=== PATIENT | female | born 1975 | race Caucasian/White ===

== ENCOUNTER 2018-08-23 16:40 | Inpatient (IN) | payer MEDICAID ==
[~2018-08-23] VITALS: Ht 160 cm; Wt 77.3 kg
[2018-08-23 17:45] VITALS: BP 168/72
--- NOTE | 2018-08-23 17:45 | NUR ---
Pt arrived via EMS from [facility]. Pt ambulated independently in to bed without difficulty. Pt oriented to room & call light placed within reach. Bed low/locked, tray table within reach.
--- NOTE | 2018-08-23 18:50 | NUR ---
Problems reprioritized. Patient report given, questions answered & plan of care reviewed with GERARDO Rahman.
--- NOTE | 2018-08-23 18:55 | NUR ---
Patient in room PCU 3014. I have received report from Hanna CARRILLO and had the opportunity to ask questions and assume patient care.
[2018-08-23] MEDS ORDERED: acetaminophen 325mg tablet PO PRN (19:25)
[2018-08-23] MEDS: normal saline 1000ml 1,000 ML IV SCH (19:45)
[2018-08-23] MEDS ORDERED: ondansetron/PF 4mg/2ml inj IV PRN (19:50)
[2018-08-23] MEDS ORDERED: ipratropium/albuterol 3ml nebule NEB PRN (19:50)
[2018-08-23 19:59] LABS: BASOPHILS # (AUTO) 0.1 X10'3 (0-0.2); BASOPHILS % (AUTO) 0.8 % (0-1); EOSINOPHILS # (AUTO) 0.1 X10'3 (0-0.9); EOSINOPHILS % (AUTO) 1.1 % (0-6); HEMATOCRIT 38.6 % (35.0-45.0); HEMOGLOBIN 13.3 g/dl (12.0-16.0); LYMPHOCYTES # (AUTO) 0.5 X10'3 (1.1-4.8); LYMPHOCYTES % (AUTO) 4.6 % (21-51); MEAN CORPUSCULAR HGB CONC 34.4 % (33.0-36.5); MEAN CORPUSCULAR VOLUME 98.8 FL (78-98); MEAN PLATELET VOLUME 7.5 FL (7.4-10.4); MONOCYTES # (AUTO) 0.9 X10'3 (0-0.9); MONOCYTES % (AUTO) 8.6 % (2-12); NEUTROPHILS # (AUTO) 8.6 X10'3 (1.8-7.7); NEUTROPHILS % (AUTO) 84.9 % (42-75); PLATELET COUNT 293 X10'3 (140-440); RED BLOOD COUNT 3.91 X10'6 (4.20-5.60); RED CELL DISTRIBUTION WIDTH 13.1 % (11.5-14.5); WHITE BLOOD COUNT 10.2 X10'3 (4.5-11.0)
[2018-08-23 20:00] VITALS: BP 148/81
--- NOTE | 2018-08-23 20:00 | NUR ---
Pt brought down to room 2014 via wheelchair. Pt unsteady gait, weak. Unsure of her normal mentation but she seems slow to respond and distracted. Pt hungry and thirsty, awaiting food tray. Frequent dry cough. Restless. Using call light.
[2018-08-23 20:10] LABS: ALANINE AMINOTRANSFERASE 59 U/L (12-78); ALBUMIN 3.1 G/DL (3.4-5.0); ALBUMIN/GLOBULIN RATIO 0.8 (1.1-1.5); ALKALINE PHOSPHATASE 127 IU/L (46-116); ANION GAP 8 (8-16); ASPARTATE AMINO TRANSFERASE 83 U/L (10-37); BILIRUBIN,TOTAL 0.8 MG/DL (0.1-1.0); BLOOD UREA NITROGEN 6 MG/DL (7-18); BUN/CREATININE RATIO 12.2 (6.6-38.0); CHLORIDE 69 MMOL/L (99-107); CREATININE 0.49 MG/DL (0.40-0.90); GLUCOSE 101 MG/DL (70-104); MAGNESIUM 1.6 MG/DL (1.5-2.4); PHOSPHORUS 1.8 MG/DL (2.3-4.5); POTASSIUM 3.2 MMOL/L (3.5-5.1); TOTAL PROTEIN 6.8 G/DL (6.4-8.2); eGFR > 90 ML/MIN
[2018-08-23 20:12] LABS: OSMOLALITY 207 MOSM/K (280-300)
[2018-08-23 20:14] LABS: PARTIAL THROMBOPLASTIN TIME 31 SECONDS (22-32); PROTHROMBIN TIME 10.4 SECONDS (9.0-12.0); SODIUM 101 MMOL/L (135-145)
[2018-08-23 21:00] VITALS: BP 132/79
[2018-08-23] MEDS: docusate sod 100mg capsule PO SCH (21:58)
[2018-08-23] MEDS: famotidine 20mg tablet PO SCH (21:58)
[2018-08-23] MEDS: labetalol 100mg tablet PO SCH (21:58)
[2018-08-23] MEDS: heparin, porcine 5000 units/ml vial SQ SCH (21:59)
[2018-08-23 22:00] VITALS: BP 128/52
[2018-08-23 23:00] VITALS: BP 133/92
[2018-08-24] VITALS (23 sets, daily range): BP systolic 93–143; BP diastolic 49–88
[2018-08-24 00:16] LABS: CLARITY,URINE CLEAR (Clear); COLOR,URINE YELLOW (Yellow); UA COLLECTION TYPE STRAIGHT CATH
[2018-08-24 00:17] LABS: GLUCOSE, URINE NEGATIVE (Neg); KETONES,URINE 15 mg/dl (Neg); LEUKOCYTE ESTERASE ,URINE NEGATIVE (Neg); NITRITES, URINE NEGATIVE (Neg); OCCULT BLOOD,URINE NEGATIVE (Neg); PH,URINE 6.5 (4.8-8.0); PROTEIN,URINE NEGATIVE (Neg)
[2018-08-24 00:53] LABS: SODIUM,URINE RANDOM < 15 MEQ/L
[2018-08-24 01:02] LABS: OSMOLALITY UA 343 MOSM/K (50-1400)
[2018-08-24 02:43] LABS: BASOPHILS % (AUTO) 0 % (0-1); EOSINOPHILS # (AUTO) 0.2 X10'3 (0-0.9); EOSINOPHILS % (AUTO) 1.4 % (0-6); HEMATOCRIT 34.1 % (35.0-45.0); LYMPHOCYTES # (AUTO) 0.4 X10'3 (1.1-4.8); LYMPHOCYTES % (AUTO) 3.3 % (21-51); MEAN CORPUSCULAR HEMOGLOBIN 34.5 PG (27.0-31.0); MEAN CORPUSCULAR HGB CONC 35.3 % (33.0-36.5); MEAN CORPUSCULAR VOLUME 97.7 FL (78-98); MEAN PLATELET VOLUME 7.6 FL (7.4-10.4); MONOCYTES % (AUTO) 8.8 % (2-12); NEUTROPHILS # (AUTO) 9.5 X10'3 (1.8-7.7); NEUTROPHILS % (AUTO) 86.5 % (42-75); PLATELET COUNT 290 X10'3 (140-440); RED BLOOD COUNT 3.49 X10'6 (4.20-5.60); RED CELL DISTRIBUTION WIDTH 12.8 % (11.5-14.5)
[2018-08-24 02:44] LABS: PARTIAL THROMBOPLASTIN TIME 32 SECONDS (22-32); PROTHROMBIN TIME 10.6 SECONDS (9.0-12.0)
[2018-08-24 02:46] LABS: ALANINE AMINOTRANSFERASE 56 U/L (12-78); ALBUMIN 2.7 G/DL (3.4-5.0); ALBUMIN/GLOBULIN RATIO 0.8 (1.1-1.5); ALKALINE PHOSPHATASE 110 IU/L (46-116); ANION GAP 8 (8-16); ASPARTATE AMINO TRANSFERASE 79 U/L (10-37); BILIRUBIN,TOTAL 0.6 MG/DL (0.1-1.0); BLOOD UREA NITROGEN 5 MG/DL (7-18); BUN/CREATININE RATIO 9.6 (6.6-38.0); CALCIUM 7.6 MG/DL (8.5-10.1); CHLORIDE 72 MMOL/L (99-107); CREATININE 0.52 MG/DL (0.40-0.90); GLUCOSE 103 MG/DL (70-104); MAGNESIUM 1.6 MG/DL (1.5-2.4); PHOSPHORUS 2.5 MG/DL (2.3-4.5); TOTAL CARBON DIOXIDE 23.6 MMOL/L (24-32); TOTAL PROTEIN 6.1 G/DL (6.4-8.2); eGFR > 90 ML/MIN
[2018-08-24 02:49] LABS: SODIUM 104 MMOL/L (135-145)
[2018-08-24] MEDS ORDERED: potassium Cl 20 mEq SR tablet PO PRN (03:50)
[2018-08-24] MEDS ORDERED: ALBU8.5H8 IH (05:34)
[2018-08-24] MEDS ORDERED: ESOM40CA30 PO (05:34)
[2018-08-24] MEDS ORDERED: LOSA50TA64 PO (05:34)
[2018-08-24] MEDS ORDERED: LABE100T5 PO (05:34)
--- NOTE | 2018-08-24 06:30 | NUR ---
Patient in room CICU 2013. I have received report from Summer Martin RN and had the opportunity to ask questions and assume patient care along with Breezy Allen RN
--- NOTE | 2018-08-24 06:43 | NUR ---
Problems reprioritized. Patient report given, questions answered & plan of care reviewed with Isaura CARRILLO.
[2018-08-24] MEDS ORDERED: furosemide 20 MG/2 ML vial IV ONE (07:05)
[2018-08-24] MEDS: normal saline 1000ml 1,000 ML IV SCH ×3 (07:51→20:35)
[2018-08-24] MEDS: thiamine 100mg tablet PO SCH (08:00)
[2018-08-24] MEDS: docusate sod 100mg capsule PO SCH ×2 (08:00→20:32)
[2018-08-24] MEDS: labetalol 100mg tablet PO SCH ×2 (08:01→20:32)
[2018-08-24] MEDS: nicotine 21mg patch - 24 hr TD SCH (08:01)
[2018-08-24] MEDS: folic acid 1mg tablet PO SCH (08:01)
[2018-08-24] MEDS: multivitamins, therapeutics tablet PO SCH (08:01)
[2018-08-24] MEDS: famotidine 20mg tablet PO SCH ×2 (08:01→20:32)
[2018-08-24] MEDS: heparin, porcine 5000 units/ml vial SQ SCH ×2 (08:02→20:33)
[2018-08-24] MEDS: methylPREDNISolone sod succ 125mg/2ml vial IV SCH ×3 (08:02→20:33)
[2018-08-24] MEDS: potassium Cl 20 mEq SR tablet PO PRN ×3 (08:04→18:03)
[2018-08-24 08:07] LABS: ALBUMIN 2.9 G/DL (3.4-5.0); ANION GAP 7 (8-16); BLOOD UREA NITROGEN 5 MG/DL (7-18); BUN/CREATININE RATIO 10.2 (6.6-38.0); CALCIUM 7.8 MG/DL (8.5-10.1); CHLORIDE 73 MMOL/L (99-107); CREATININE 0.49 MG/DL (0.40-0.90); GLUCOSE 106 MG/DL (70-104); POTASSIUM 3.4 MMOL/L (3.5-5.1); TOTAL CARBON DIOXIDE 24.9 MMOL/L (24-32); eGFR > 90 ML/MIN
[2018-08-24 08:18] LABS: SODIUM 105 MMOL/L (135-145)
--- NOTE | 2018-08-24 09:11 | NUR ---
Patient belongings searched at bedside per request of security, with patients permission. No drugs or weapons found
[2018-08-24] MEDS ORDERED: TOLVAPTAN 30 MG TABLET PO ONE (12:00)
[2018-08-24 13:30] LABS: ANION GAP 7 (8-16); BLOOD UREA NITROGEN 5 MG/DL (7-18); BUN/CREATININE RATIO 9.6 (6.6-38.0); CALCIUM 8.4 MG/DL (8.5-10.1); CHLORIDE 78 MMOL/L (99-107); CREATININE 0.52 MG/DL (0.40-0.90); GLUCOSE 129 MG/DL (70-104); POTASSIUM 3.3 MMOL/L (3.5-5.1); TOTAL CARBON DIOXIDE 26.4 MMOL/L (24-32); eGFR > 90 ML/MIN
[2018-08-24 13:36] LABS: SODIUM 111 MMOL/L (135-145)
--- NOTE | 2018-08-24 13:46 | NUR ---
Sodium 111; up from 105. notified. Orders to hold Tolvaptan for now. No other new orders
[2018-08-24] MEDS: acetaminophen 325mg tablet PO PRN (14:07)
[2018-08-24] MEDS ORDERED: ALBU18HF2 INH (17:21)
[2018-08-24] MEDS ORDERED: PSEU120T55 PO (17:21)
[2018-08-24] MEDS ORDERED: BECL7.3A INH (17:21)
--- NOTE | 2018-08-24 18:02 | NUR ---
Orientee documentation: I have reviewed and agree with all interventions, assessments performed and documented by Breezy Allen RN.
--- NOTE | 2018-08-24 18:34 | NUR ---
Problems reprioritized. Patient report given, questions answered & plan of care reviewed with Veronique Allen RN.
[2018-08-24 19:47] LABS: ALBUMIN 2.8 G/DL (3.4-5.0); ANION GAP 7 (8-16); BLOOD UREA NITROGEN 6 MG/DL (7-18); BUN/CREATININE RATIO 8.7 (6.6-38.0); CALCIUM 8.1 MG/DL (8.5-10.1); CHLORIDE 84 MMOL/L (99-107); CREATININE 0.69 MG/DL (0.40-0.90); GLUCOSE 148 MG/DL (70-104); POTASSIUM 4.1 MMOL/L (3.5-5.1); TOTAL CARBON DIOXIDE 25.5 MMOL/L (24-32); eGFR > 90 ML/MIN
[2018-08-24 19:50] LABS: SODIUM 116 MMOL/L (135-145)
[2018-08-25] VITALS (16 sets, daily range): BP systolic 119–165; BP diastolic 64–91
[2018-08-25] MEDS: methylPREDNISolone sod succ 125mg/2ml vial IV SCH ×4 (02:44→20:15)
[2018-08-25 06:11] LABS: BASOPHILS % (AUTO) 0 % (0-1); EOSINOPHILS % (AUTO) 0 % (0-6); HEMATOCRIT 35.5 % (35.0-45.0); HEMOGLOBIN 12.2 g/dl (12.0-16.0); LYMPHOCYTES # (AUTO) 0.2 X10'3 (1.1-4.8); LYMPHOCYTES % (AUTO) 1.4 % (21-51); MEAN CORPUSCULAR HEMOGLOBIN 34.2 PG (27.0-31.0); MEAN CORPUSCULAR HGB CONC 34.3 % (33.0-36.5); MEAN CORPUSCULAR VOLUME 99.8 FL (78-98); MEAN PLATELET VOLUME 7.8 FL (7.4-10.4); MONOCYTES # (AUTO) 0.4 X10'3 (0-0.9); MONOCYTES % (AUTO) 2.3 % (2-12); NEUTROPHILS # (AUTO) 15.1 X10'3 (1.8-7.7); NEUTROPHILS % (AUTO) 96.3 % (42-75); PLATELET COUNT 350 X10'3 (140-440); RED BLOOD COUNT 3.56 X10'6 (4.20-5.60); RED CELL DISTRIBUTION WIDTH 13.7 % (11.5-14.5); WHITE BLOOD COUNT 15.7 X10'3 (4.5-11.0)
[2018-08-25 06:17] LABS: ALANINE AMINOTRANSFERASE 54 U/L (12-78); ALBUMIN 2.8 G/DL (3.4-5.0); ALBUMIN/GLOBULIN RATIO 0.7 (1.1-1.5); ALKALINE PHOSPHATASE 105 IU/L (46-116); ANION GAP 8 (8-16); ASPARTATE AMINO TRANSFERASE 50 U/L (10-37); BILIRUBIN,TOTAL 0.4 MG/DL (0.1-1.0); BLOOD UREA NITROGEN 5 MG/DL (7-18); BUN/CREATININE RATIO 9.3 (6.6-38.0); CALCIUM 8.4 MG/DL (8.5-10.1); CHLORIDE 87 MMOL/L (99-107); CREATININE 0.54 MG/DL (0.40-0.90); GLUCOSE 134 MG/DL (70-104); MAGNESIUM 1.9 MG/DL (1.5-2.4); PHOSPHORUS 2.7 MG/DL (2.3-4.5); POTASSIUM 4.3 MMOL/L (3.5-5.1); TOTAL CARBON DIOXIDE 24.5 MMOL/L (24-32); TOTAL PROTEIN 6.6 G/DL (6.4-8.2); eGFR > 90 ML/MIN
[2018-08-25 06:21] LABS: SODIUM 119 MMOL/L (135-145)
--- NOTE | 2018-08-25 06:30 | NUR ---
Patient in room CICU 2012. Assumed patient care along with Breezy Allen RN.
[2018-08-25 06:31] LABS: PARTIAL THROMBOPLASTIN TIME 28 SECONDS (22-32); PROTHROMBIN TIME 9.8 SECONDS (9.0-12.0)
[2018-08-25] MEDS: normal saline 1000ml 1,000 ML IV SCH ×3 (06:38→17:21)
[2018-08-25] MEDS: ipratropium/albuterol 3ml nebule NEB SCH ×3 (08:00→19:47)
[2018-08-25] MEDS: famotidine 20mg tablet PO SCH (08:55)
[2018-08-25] MEDS: docusate sod 100mg capsule PO SCH ×2 (08:55→20:15)
[2018-08-25] MEDS: labetalol 100mg tablet PO SCH ×2 (08:55→20:15)
[2018-08-25] MEDS: thiamine 100mg tablet PO SCH (08:55)
[2018-08-25] MEDS: folic acid 1mg tablet PO SCH (08:55)
[2018-08-25] MEDS: multivitamins, therapeutics tablet PO SCH (08:55)
[2018-08-25] MEDS: heparin, porcine 5000 units/ml vial SQ SCH ×2 (08:58→20:24)
[2018-08-25] MEDS: nicotine 21mg patch - 24 hr TD SCH (08:59)
[2018-08-25 12:37] LABS: ALANINE AMINOTRANSFERASE 55 U/L (12-78); ALBUMIN 2.7 G/DL (3.4-5.0); ALBUMIN/GLOBULIN RATIO 0.7 (1.1-1.5); ALKALINE PHOSPHATASE 108 IU/L (46-116); ANION GAP 7 (8-16); ASPARTATE AMINO TRANSFERASE 48 U/L (10-37); BILIRUBIN,TOTAL 0.3 MG/DL (0.1-1.0); BLOOD UREA NITROGEN 5 MG/DL (7-18); CALCIUM 8.4 MG/DL (8.5-10.1); CHLORIDE 88 MMOL/L (99-107); GLUCOSE 134 MG/DL (70-104); POTASSIUM 4.4 MMOL/L (3.5-5.1); TOTAL CARBON DIOXIDE 24.1 MMOL/L (24-32); TOTAL PROTEIN 6.5 G/DL (6.4-8.2); eGFR > 90 ML/MIN
[2018-08-25 12:39] LABS: SODIUM 119 MMOL/L (135-145)
--- NOTE | 2018-08-25 12:43 | NUR ---
Received report from ICU nurse Isaura CARRILLO. Awaiting arrival to room 4011A.
--- NOTE | 2018-08-25 12:50 | NUR ---
Report called to receiving nurse, Isaura Mcarthur RN. Transferred via wheelchair Belongings [sent with patient, states she is missing reading glasses in black case, brought in last night]. Special Issues communicated to receiving nurse, see unit to unit transfer intervention. Home meds sent in bag with reported slip inside, education provided to patient regarding the use of home meds and how it is prohibited to use them while in the hospital. NS running at 75ml/hr. Nebulizer in [facility],s ent with patient. Oziel RT notified patient requesting breathing treatment. Patient denies pain. Addendum: 08/25/18 at 1331 by Isaura Lawson RN ROOM [facility]
[2018-08-25] MEDS: losartan 50mg tablet PO SCH (12:58)
--- NOTE | 2018-08-25 13:23 | NUR ---
Patient arrived to room 4011A. Patient oriented to call light, bed controls.
[2018-08-25] MEDS ORDERED: ESOMEPRAZOLE MAGNESIUM 40 MG PO SCH (13:45)
[2018-08-25] MEDS ORDERED: ESOMEPRAZOLE MAGNESIUM 20 MG PO SCH (13:46)
[2018-08-25] MEDS ORDERED: TYPE IN GENERIC & BRAND NAME OF PATIENT MED STRENGTH & FORM PO ONE (13:55)
[2018-08-25] MEDS ORDERED: NEXIUM 20 MG PO SCH ×2 (14:03→14:25)
--- NOTE | 2018-08-25 14:12 | NUR ---
Dr. Scott notified of critical Na of 119. No new orders at this time.
--- NOTE | 2018-08-25 14:17 | NUR ---
Pt refusing blood sugar check at this time.
[2018-08-25] MEDS ORDERED: ESOM20CA PO (16:59)
[2018-08-25] MEDS: NEXIUM 20 MG PO SCH (17:17)
--- NOTE | 2018-08-25 18:13 | NUR ---
Problems reprioritized. Patient report given, questions answered & plan of care reviewed with Linda CARRILLO.
--- NOTE | 2018-08-25 18:29 | NUR ---
PATIENT REPORT RECEIVED FROM ALVARADO CARRILLO.
[2018-08-25 18:45] LABS: ALANINE AMINOTRANSFERASE 67 U/L (12-78); ALBUMIN/GLOBULIN RATIO 0.8 (1.1-1.5); ALKALINE PHOSPHATASE 111 IU/L (46-116); ANION GAP 8 (8-16); ASPARTATE AMINO TRANSFERASE 60 U/L (10-37); BILIRUBIN,TOTAL 0.3 MG/DL (0.1-1.0); BLOOD UREA NITROGEN 7 MG/DL (7-18); BUN/CREATININE RATIO 9.1 (6.6-38.0); CALCIUM 8.5 MG/DL (8.5-10.1); CHLORIDE 88 MMOL/L (99-107); CREATININE 0.77 MG/DL (0.40-0.90); GLUCOSE 145 MG/DL (70-104); POTASSIUM 4.3 MMOL/L (3.5-5.1); TOTAL CARBON DIOXIDE 24.1 MMOL/L (24-32); TOTAL PROTEIN 6.9 G/DL (6.4-8.2); eGFR 81 ML/MIN
[2018-08-25 18:50] LABS: SODIUM 120 MMOL/L (135-145)
[2018-08-26] MEDS: LORazepam 1 MG tablet PO PRN ×2 (01:15→21:21)
[2018-08-26] MEDS: ipratropium/albuterol 3ml nebule NEB SCH ×4 (01:54→19:53)
[2018-08-26] MEDS: methylPREDNISolone sod succ 125mg/2ml vial IV SCH ×4 (02:20→22:41)
[2018-08-26 02:49] LABS: BASOPHILS % (AUTO) 0 % (0-1); EOSINOPHILS # (AUTO) 0.2 X10'3 (0-0.9); EOSINOPHILS % (AUTO) 1.1 % (0-6); HEMATOCRIT 32.9 % (35.0-45.0); HEMOGLOBIN 11.5 g/dl (12.0-16.0); LYMPHOCYTES # (AUTO) 0.3 X10'3 (1.1-4.8); LYMPHOCYTES % (AUTO) 1.8 % (21-51); MEAN CORPUSCULAR HEMOGLOBIN 34.3 PG (27.0-31.0); MEAN CORPUSCULAR HGB CONC 34.9 % (33.0-36.5); MEAN CORPUSCULAR VOLUME 98.3 FL (78-98); MEAN PLATELET VOLUME 7.9 FL (7.4-10.4); MONOCYTES # (AUTO) 0.8 X10'3 (0-0.9); MONOCYTES % (AUTO) 5.2 % (2-12); NEUTROPHILS # (AUTO) 14.7 X10'3 (1.8-7.7); NEUTROPHILS % (AUTO) 91.9 % (42-75); PLATELET COUNT 366 X10'3 (140-440); RED BLOOD COUNT 3.35 X10'6 (4.20-5.60); RED CELL DISTRIBUTION WIDTH 13.8 % (11.5-14.5)
[2018-08-26 02:54] LABS: ALANINE AMINOTRANSFERASE 83 U/L (12-78); ALBUMIN/GLOBULIN RATIO 0.8 (1.1-1.5); ALKALINE PHOSPHATASE 113 IU/L (46-116); ANION GAP 11 (8-16); ASPARTATE AMINO TRANSFERASE 78 U/L (10-37); BILIRUBIN,TOTAL 0.4 MG/DL (0.1-1.0); BLOOD UREA NITROGEN 9 MG/DL (7-18); BUN/CREATININE RATIO 13.8 (6.6-38.0); CALCIUM 8.6 MG/DL (8.5-10.1); CHLORIDE 87 MMOL/L (99-107); CREATININE 0.65 MG/DL (0.40-0.90); GLUCOSE 147 MG/DL (70-104); MAGNESIUM 1.8 MG/DL (1.5-2.4); PHOSPHORUS 2.4 MG/DL (2.3-4.5); POTASSIUM 4.3 MMOL/L (3.5-5.1); TOTAL CARBON DIOXIDE 20.4 MMOL/L (24-32); TOTAL PROTEIN 6.9 G/DL (6.4-8.2); eGFR > 90 ML/MIN
[2018-08-26 02:55] LABS: PARTIAL THROMBOPLASTIN TIME 26 SECONDS (22-32); PROTHROMBIN TIME 9.9 SECONDS (9.0-12.0)
[2018-08-26 02:59] LABS: SODIUM 118 MMOL/L (135-145)
--- NOTE | 2018-08-26 04:29 | NUR ---
PT PULLED OUT IV. NEW ONE PUT IN.
[2018-08-26] MEDS: hydrALAZINE 20mg/ml inj. IV PRN ×2 (05:47→23:17)
[2018-08-26 06:00] VITALS: BP 189/106
--- NOTE | 2018-08-26 06:47 | NUR ---
PATIENT REPORT GIVEN TO KRISTEN CARRILLO.
--- NOTE | 2018-08-26 07:16 | NUR ---
Patient in room ORTHO 4009. I have received report from Kelley Shelton RN and had the opportunity to ask questions and assume patient care.
[2018-08-26 07:44] LABS: ALANINE AMINOTRANSFERASE 83 U/L (12-78); ALBUMIN 3.1 G/DL (3.4-5.0); ALBUMIN/GLOBULIN RATIO 0.8 (1.1-1.5); ALKALINE PHOSPHATASE 116 IU/L (46-116); ANION GAP 11 (8-16); ASPARTATE AMINO TRANSFERASE 73 U/L (10-37); BILIRUBIN,TOTAL 0.4 MG/DL (0.1-1.0); BLOOD UREA NITROGEN 8 MG/DL (7-18); BUN/CREATININE RATIO 12.5 (6.6-38.0); CALCIUM 9.1 MG/DL (8.5-10.1); CHLORIDE 88 MMOL/L (99-107); CREATININE 0.64 MG/DL (0.40-0.90); GLUCOSE 148 MG/DL (70-104); POTASSIUM 4.1 MMOL/L (3.5-5.1); TOTAL CARBON DIOXIDE 21.4 MMOL/L (24-32); eGFR > 90 ML/MIN
[2018-08-26 07:47] LABS: SODIUM 120 MMOL/L (135-145)
[2018-08-26] MEDS: normal saline 1000ml 1,000 ML IV SCH ×2 (07:47→22:54)
[2018-08-26] MEDS: folic acid 1mg tablet PO SCH (07:48)
[2018-08-26] MEDS: docusate sod 100mg capsule PO SCH ×2 (07:48→21:21)
[2018-08-26] MEDS: thiamine 100mg tablet PO SCH (07:49)
[2018-08-26] MEDS: losartan 50mg tablet PO SCH (07:50)
[2018-08-26] MEDS: multivitamins, therapeutics tablet PO SCH (07:50)
[2018-08-26] MEDS: labetalol 100mg tablet PO SCH ×2 (07:50→21:21)
[2018-08-26] MEDS: heparin, porcine 5000 units/ml vial SQ SCH ×2 (07:54→21:21)
[2018-08-26] MEDS: nicotine 21mg patch - 24 hr TD SCH (07:56)
--- NOTE | 2018-08-26 08:13 | NUR ---
Karin Pastor called about Critical NA of 120, no change in orders, will continue to monitor
[2018-08-26 10:00] VITALS: BP 168/95
[2018-08-26] MEDS: NEXIUM 20 MG PO SCH (10:06)
[2018-08-26] MEDS ORDERED: furosemide 20 MG/2 ML vial IV ONE (12:25)
[2018-08-26] MEDS: sodium chloride 1gm tablet PO SCH ×3 (12:54→21:21)
[2018-08-26 12:59] VITALS: BP 176/88
[2018-08-26 15:48] VITALS: BP 161/87
[2018-08-26 17:23] LABS: ALANINE AMINOTRANSFERASE 87 U/L (12-78); ALBUMIN/GLOBULIN RATIO 0.8 (1.1-1.5); ALKALINE PHOSPHATASE 113 IU/L (46-116); ANION GAP 9 (8-16); ASPARTATE AMINO TRANSFERASE 64 U/L (10-37); BILIRUBIN,TOTAL 0.3 MG/DL (0.1-1.0); BLOOD UREA NITROGEN 9 MG/DL (7-18); BUN/CREATININE RATIO 13.2 (6.6-38.0); CALCIUM 8.6 MG/DL (8.5-10.1); CHLORIDE 89 MMOL/L (99-107); CREATININE 0.68 MG/DL (0.40-0.90); GLUCOSE 150 MG/DL (70-104); SODIUM 121 MMOL/L (135-145); TOTAL CARBON DIOXIDE 23.1 MMOL/L (24-32); TOTAL PROTEIN 6.8 G/DL (6.4-8.2); eGFR > 90 ML/MIN
[2018-08-26 18:00] VITALS: BP 177/86
--- NOTE | 2018-08-26 18:20 | NUR ---
Problems reprioritized. Patient report given, questions answered & plan of care reviewed with Linda CARRILLO.
--- NOTE | 2018-08-26 18:33 | NUR ---
PATIENT REPORT RECEIVED FROM KRISTEN CARRILLO.
[2018-08-26 21:21] LABS: ALANINE AMINOTRANSFERASE 98 U/L (12-78); ALBUMIN 3.1 G/DL (3.4-5.0); ALBUMIN/GLOBULIN RATIO 0.8 (1.1-1.5); ALKALINE PHOSPHATASE 122 IU/L (46-116); ANION GAP 11 (8-16); ASPARTATE AMINO TRANSFERASE 79 U/L (10-37); BILIRUBIN,TOTAL 0.3 MG/DL (0.1-1.0); BLOOD UREA NITROGEN 8 MG/DL (7-18); BUN/CREATININE RATIO 11.4 (6.6-38.0); CALCIUM 8.8 MG/DL (8.5-10.1); CHLORIDE 90 MMOL/L (99-107); GLUCOSE 154 MG/DL (70-104); SODIUM 122 MMOL/L (135-145); TOTAL PROTEIN 6.9 G/DL (6.4-8.2); eGFR 90 ML/MIN
--- NOTE | 2018-08-26 21:47 | NUR ---
Late note from this am at 0500, I moved patient from room 4011a to room 4009a since she was getting up on her own and is unsteady with her gait. She also has pulled out three iv's over the night too. We rounded on patient often for safety and reminded her to use the call light for assistance to get oob but she was not compliant. She was sitting in the chair, taking off the TABS alarm and would not stay in the bed with the bed alarm on. She would go to the bathroom on her own so it was impossible to do accurate i/o the evening of 08/25/18. Hats were placed in the toilet but not being used by her.
[2018-08-26 22:00] VITALS: BP 192/97
[2018-08-27] MEDS: ipratropium/albuterol 3ml nebule NEB SCH ×3 (01:58→20:16)
[2018-08-27] MEDS: methylPREDNISolone sod succ 125mg/2ml vial IV SCH ×3 (03:00→19:47)
[2018-08-27 05:00] VITALS: BP 177/91
--- NOTE | 2018-08-27 06:37 | NUR ---
PATIENT REPORT GIVEN TO TREVON CARRILLO.
[2018-08-27 06:39] LABS: BASOPHILS % (AUTO) 0 % (0-1); EOSINOPHILS % (AUTO) 0 % (0-6); HEMATOCRIT 34.5 % (35.0-45.0); HEMOGLOBIN 11.9 g/dl (12.0-16.0); LYMPHOCYTES # (AUTO) 0.4 X10'3 (1.1-4.8); LYMPHOCYTES % (AUTO) 3.5 % (21-51); MEAN CORPUSCULAR HEMOGLOBIN 34.1 PG (27.0-31.0); MEAN CORPUSCULAR HGB CONC 34.5 % (33.0-36.5); MEAN CORPUSCULAR VOLUME 98.9 FL (78-98); MEAN PLATELET VOLUME 7.4 FL (7.4-10.4); MONOCYTES # (AUTO) 0.7 X10'3 (0-0.9); MONOCYTES % (AUTO) 5.7 % (2-12); NEUTROPHILS # (AUTO) 10.6 X10'3 (1.8-7.7); NEUTROPHILS % (AUTO) 90.8 % (42-75); PLATELET COUNT 398 X10'3 (140-440); RED BLOOD COUNT 3.49 X10'6 (4.20-5.60); RED CELL DISTRIBUTION WIDTH 13.6 % (11.5-14.5); WHITE BLOOD COUNT 11.7 X10'3 (4.5-11.0)
[2018-08-27 06:49] LABS: PARTIAL THROMBOPLASTIN TIME 25 SECONDS (22-32); PROTHROMBIN TIME 10.3 SECONDS (9.0-12.0)
[2018-08-27 06:54] LABS: ALANINE AMINOTRANSFERASE 98 U/L (12-78); ALBUMIN 2.9 G/DL (3.4-5.0); ALBUMIN/GLOBULIN RATIO 0.8 (1.1-1.5); ALKALINE PHOSPHATASE 116 IU/L (46-116); ANION GAP 11 (8-16); ASPARTATE AMINO TRANSFERASE 70 U/L (10-37); BILIRUBIN,TOTAL 0.4 MG/DL (0.1-1.0); BLOOD UREA NITROGEN 9 MG/DL (7-18); BUN/CREATININE RATIO 18.8 (6.6-38.0); CALCIUM 8.6 MG/DL (8.5-10.1); CHLORIDE 92 MMOL/L (99-107); CREATININE 0.48 MG/DL (0.40-0.90); GLUCOSE 133 MG/DL (70-104); MAGNESIUM 1.8 MG/DL (1.5-2.4); PHOSPHORUS 3.7 MG/DL (2.3-4.5); SODIUM 124 MMOL/L (135-145); TOTAL CARBON DIOXIDE 21.2 MMOL/L (24-32); TOTAL PROTEIN 6.6 G/DL (6.4-8.2); eGFR > 90 ML/MIN
[2018-08-27] MEDS: furosemide 20 MG/2 ML vial IV SCH (09:12)
[2018-08-27 10:00] VITALS: BP 169/94
[2018-08-27] MEDS: nicotine 21mg patch - 24 hr TD SCH (10:17)
[2018-08-27] MEDS: docusate sod 100mg capsule PO SCH ×2 (10:18→19:43)
[2018-08-27] MEDS: multivitamins, therapeutics tablet PO SCH (10:18)
[2018-08-27] MEDS: losartan 50mg tablet PO SCH (10:18)
[2018-08-27] MEDS: labetalol 100mg tablet PO SCH ×2 (10:19→19:43)
[2018-08-27] MEDS: thiamine 100mg tablet PO SCH (10:19)
[2018-08-27] MEDS: sodium chloride 1gm tablet PO SCH ×4 (10:19→19:43)
[2018-08-27] MEDS: folic acid 1mg tablet PO SCH (10:19)
[2018-08-27] MEDS: NEXIUM 20 MG PO SCH (10:19)
[2018-08-27] MEDS: heparin, porcine 5000 units/ml vial SQ SCH ×2 (10:26→19:43)
--- NOTE | 2018-08-27 11:32 | NUR ---
Initial: Pt admit w/ SIADH r/t etoh potomania per note. Receiving thiamin/folic/MVI w/ Na 124 up from 101 on admit. PO 50% avg meals good given current wt. LBM 08/24 on colace. Will continue to monitor. Rec; 1. continue regular diet 2. thiamin/folic/MVI for etoh 3. wt per rx Addendum: 08/27/18 at [address] Amended: Links added.
[2018-08-27] MEDS ORDERED: labetalol 100mg tablet PO ONE (13:20)
[2018-08-27] MEDS: pseudoephedrine 30mg tablet PO PRN (14:45)
[2018-08-27] MEDS: acetaminophen 325mg tablet PO PRN (17:50)
--- NOTE | 2018-08-27 18:16 | NUR ---
Report to Shilpa CARRILLO
[2018-08-27 18:39] VITALS: BP 183/103
--- NOTE | 2018-08-27 18:52 | NUR ---
REPORT REC'D FROM GERARDO LESTER.
[2018-08-27 22:00] VITALS: BP 196/98
[2018-08-27] MEDS: hydrALAZINE 20mg/ml inj. IV PRN (22:42)
--- NOTE | 2018-08-27 22:46 | NUR ---
HYDRALAZINE GIVEN FOR INCREASED BP. 196/98. SL AT THIS TIME R/T INCREASED BP. WILL CONTINUE TO MONITOR.
[2018-08-28] MEDS: ipratropium/albuterol 3ml nebule NEB SCH ×4 (01:57→19:54)
[2018-08-28 06:00] VITALS: BP 147/80
--- NOTE | 2018-08-28 06:00 | NUR ---
Patient in room ORTHO 4009. I have received report from GERARDO Massey and had the opportunity to ask questions and assume patient care.
--- NOTE | 2018-08-28 06:23 | NUR ---
REPORT GIVEN TO GERARDO MORENO.
[2018-08-28 06:33] LABS: BASOPHILS # (AUTO) 0.1 X10'3 (0-0.2); BASOPHILS % (AUTO) 0.5 % (0-1); EOSINOPHILS # (AUTO) 0.1 X10'3 (0-0.9); EOSINOPHILS % (AUTO) 1.1 % (0-6); HEMATOCRIT 34.4 % (35.0-45.0); HEMOGLOBIN 11.7 g/dl (12.0-16.0); LYMPHOCYTES # (AUTO) 0.9 X10'3 (1.1-4.8); LYMPHOCYTES % (AUTO) 7.3 % (21-51); MEAN CORPUSCULAR HEMOGLOBIN 33.7 PG (27.0-31.0); MEAN CORPUSCULAR HGB CONC 34.1 % (33.0-36.5); MEAN CORPUSCULAR VOLUME 98.8 FL (78-98); MONOCYTES # (AUTO) 1.7 X10'3 (0-0.9); MONOCYTES % (AUTO) 13.7 % (2-12); NEUTROPHILS # (AUTO) 9.7 X10'3 (1.8-7.7); NEUTROPHILS % (AUTO) 77.4 % (42-75); PLATELET COUNT 443 X10'3 (140-440); RED BLOOD COUNT 3.48 X10'6 (4.20-5.60); RED CELL DISTRIBUTION WIDTH 13.6 % (11.5-14.5); WHITE BLOOD COUNT 12.5 X10'3 (4.5-11.0)
[2018-08-28 06:50] LABS: ALANINE AMINOTRANSFERASE 121 U/L (12-78); ALBUMIN 2.8 G/DL (3.4-5.0); ALBUMIN/GLOBULIN RATIO 0.8 (1.1-1.5); ALKALINE PHOSPHATASE 109 IU/L (46-116); ANION GAP 10 (8-16); ASPARTATE AMINO TRANSFERASE 80 U/L (10-37); BILIRUBIN,TOTAL 0.3 MG/DL (0.1-1.0); BLOOD UREA NITROGEN 14 MG/DL (7-18); BUN/CREATININE RATIO 19.7 (6.6-38.0); CALCIUM 8.5 MG/DL (8.5-10.1); CHLORIDE 95 MMOL/L (99-107); CREATININE 0.71 MG/DL (0.40-0.90); GLUCOSE 114 MG/DL (70-104); MAGNESIUM 1.7 MG/DL (1.5-2.4); PHOSPHORUS 3.9 MG/DL (2.3-4.5); POTASSIUM 3.3 MMOL/L (3.5-5.1); SODIUM 127 MMOL/L (135-145); TOTAL CARBON DIOXIDE 21.9 MMOL/L (24-32); TOTAL PROTEIN 6.2 G/DL (6.4-8.2); eGFR 89 ML/MIN
[2018-08-28 07:08] LABS: PARTIAL THROMBOPLASTIN TIME 25 SECONDS (22-32); PROTHROMBIN TIME 10.3 SECONDS (9.0-12.0)
[2018-08-28] MEDS: furosemide 20 MG/2 ML vial IV SCH (08:35)
[2018-08-28] MEDS: docusate sod 100mg capsule PO SCH ×2 (08:35→20:36)
[2018-08-28] MEDS: methylPREDNISolone sod succ 125mg/2ml vial IV SCH ×2 (08:35→20:35)
[2018-08-28] MEDS: folic acid 1mg tablet PO SCH (08:38)
[2018-08-28] MEDS: losartan 50mg tablet PO SCH (08:38)
[2018-08-28] MEDS: thiamine 100mg tablet PO SCH (08:39)
[2018-08-28] MEDS: multivitamins, therapeutics tablet PO SCH (08:39)
[2018-08-28] MEDS: sodium chloride 1gm tablet PO SCH ×4 (08:39→20:36)
[2018-08-28] MEDS: NEXIUM 20 MG PO SCH (08:39)
[2018-08-28] MEDS: labetalol 100mg tablet PO SCH ×3 (08:40→20:36)
[2018-08-28] MEDS: heparin, porcine 5000 units/ml vial SQ SCH ×2 (08:40→20:44)
[2018-08-28] MEDS: nicotine 21mg patch - 24 hr TD SCH (08:41)
[2018-08-28] MEDS: pseudoephedrine 30mg tablet PO PRN (08:41)
[2018-08-28 10:00] VITALS: BP 147/83
[2018-08-28] MEDS: normal saline 1000ml 1,000 ML IV SCH (13:00)
[2018-08-28 18:00] VITALS: BP 173/89
--- NOTE | 2018-08-28 18:28 | NUR ---
REPORT REC'D FROM GERARDO MORENO.
--- NOTE | 2018-08-28 20:01 | NUR ---
PT TOOK 2000 SVN TREATMENT FOR ABOUT 3 MIN AND REFUSED THE REST
[2018-08-28 22:00] VITALS: BP 164/91
[2018-08-29] MEDS: ipratropium/albuterol 3ml nebule NEB SCH ×3 (02:00→14:00)
--- NOTE | 2018-08-29 02:46 | NUR ---
pt refused 0200 svn treatment
[2018-08-29 06:00] VITALS: BP 176/94
--- NOTE | 2018-08-29 06:10 | NUR ---
Patient in room ORTHO 4009. I have received report from GERARDO Massey and had the opportunity to ask questions and assume patient care.
--- NOTE | 2018-08-29 06:12 | NUR ---
REPORT GIVEN TO GERARDO MORENO.
[2018-08-29 06:38] LABS: BASOPHILS # (AUTO) 0.1 X10'3 (0-0.2); BASOPHILS % (AUTO) 0.4 % (0-1); EOSINOPHILS # (AUTO) 0.2 X10'3 (0-0.9); EOSINOPHILS % (AUTO) 1.6 % (0-6); HEMATOCRIT 35.8 % (35.0-45.0); HEMOGLOBIN 12.2 g/dl (12.0-16.0); LYMPHOCYTES # (AUTO) 0.8 X10'3 (1.1-4.8); LYMPHOCYTES % (AUTO) 6.1 % (21-51); MEAN CORPUSCULAR HEMOGLOBIN 33.9 PG (27.0-31.0); MEAN CORPUSCULAR VOLUME 99.6 FL (78-98); MEAN PLATELET VOLUME 7.3 FL (7.4-10.4); MONOCYTES # (AUTO) 1.2 X10'3 (0-0.9); MONOCYTES % (AUTO) 9.8 % (2-12); NEUTROPHILS # (AUTO) 10.3 X10'3 (1.8-7.7); NEUTROPHILS % (AUTO) 82.1 % (42-75); PLATELET COUNT 488 X10'3 (140-440); RED CELL DISTRIBUTION WIDTH 14.3 % (11.5-14.5); WHITE BLOOD COUNT 12.5 X10'3 (4.5-11.0)
[2018-08-29 06:44] LABS: PARTIAL THROMBOPLASTIN TIME 25 SECONDS (22-32)
[2018-08-29 06:51] LABS: ALANINE AMINOTRANSFERASE 109 U/L (12-78); ALBUMIN 2.9 G/DL (3.4-5.0); ALBUMIN/GLOBULIN RATIO 0.8 (1.1-1.5); ALKALINE PHOSPHATASE 104 IU/L (46-116); ANION GAP 12 (8-16); ASPARTATE AMINO TRANSFERASE 48 U/L (10-37); BILIRUBIN,TOTAL 0.3 MG/DL (0.1-1.0); BLOOD UREA NITROGEN 15 MG/DL (7-18); BUN/CREATININE RATIO 25.9 (6.6-38.0); CALCIUM 8.6 MG/DL (8.5-10.1); CHLORIDE 95 MMOL/L (99-107); CREATININE 0.58 MG/DL (0.40-0.90); GLUCOSE 107 MG/DL (70-104); MAGNESIUM 1.5 MG/DL (1.5-2.4); PHOSPHORUS 4.7 MG/DL (2.3-4.5); POTASSIUM 3.7 MMOL/L (3.5-5.1); SODIUM 130 MMOL/L (135-145); TOTAL CARBON DIOXIDE 23.3 MMOL/L (24-32); TOTAL PROTEIN 6.5 G/DL (6.4-8.2); eGFR > 90 ML/MIN
[2018-08-29 08:30] VITALS: BP 150/96
[2018-08-29] MEDS: methylPREDNISolone sod succ 125mg/2ml vial IV SCH (08:41)
[2018-08-29] MEDS: furosemide 20 MG/2 ML vial IV SCH (08:41)
[2018-08-29] MEDS: docusate sod 100mg capsule PO SCH (08:42)
[2018-08-29] MEDS: multivitamins, therapeutics tablet PO SCH (08:45)
[2018-08-29] MEDS: folic acid 1mg tablet PO SCH (08:45)
[2018-08-29] MEDS: sodium chloride 1gm tablet PO SCH ×3 (08:45→17:38)
[2018-08-29] MEDS: NEXIUM 20 MG PO SCH (08:45)
[2018-08-29] MEDS: heparin, porcine 5000 units/ml vial SQ SCH (08:45)
[2018-08-29] MEDS: thiamine 100mg tablet PO SCH (08:45)
[2018-08-29] MEDS: nicotine 21mg patch - 24 hr TD SCH (08:46)
[2018-08-29] MEDS: labetalol 100mg tablet PO SCH ×2 (08:53→13:17)
[2018-08-29] MEDS: losartan 50mg tablet PO SCH (08:53)
[2018-08-29] MEDS: pseudoephedrine 30mg tablet PO PRN (09:06)
[2018-08-29 10:00] VITALS: BP 147/81
[2018-08-29 13:00] VITALS: BP 140/85
[2018-08-29] MEDS ORDERED: IPRA3AMP9 NEB (16:04)
[2018-08-29] MEDS ORDERED: PRED5TAB PO (16:04)
[2018-08-29] MEDS ORDERED: [UNRECOGNIZED DRUG - CODE] PO (16:05)
[2018-08-29] MEDS: acetaminophen 325mg tablet PO PRN (17:39)
--- NOTE | 2018-08-29 18:15 | NUR ---
Received discharged orders written by Dr. Scott. Pt used [facility] to get 2 of her discharge medications. Alpesh from [facility] explained to pt and her Fransico, that the cost for the Demeclocycline HCL 150mg 1 tablet oral twice a day for 10 days would cost the patient "around $60.00." Pt's advised Alpesh that they could not pay for the prescription and asked me to call Dr. Scott and see if he could order a different antibiotic. TC made to Dr. Scott who informed pt needs to be on this specific antibiotic. TC made to [facility] in [place] @ [phone] and called in prescription. Pt advised the antibiotic would be available for pickup from [facility] per their request. Pt's IV in her LFA dc'd with cannula intact. Reviewed discharge orders with pt and her . Pt discharged via w/c to private vehicle at 1815.
== END 2018-08-29 18:15 | disposition home or self-care (01) | DRG 426 ==
LOC: PCU 3S 18:15 → CICU 2S 19:35 → ORTHO 4S 08-25 13:15
PROVIDERS: ADMIT Internal Medicine Critical Care Medicine; ATTEND Internal Medicine Critical Care Medicine
DX: E22.2 Syndrome of inappropriate secretion of antidiuretic hormone (principal); F10.20 Alcohol dependence, uncomplicated; F12.90 Cannabis use, unspecified, uncomplicated; F17.200 Nicotine dependence, unspecified, uncomplicated; I10 Essential (primary) hypertension; J45.909 Unspecified asthma, uncomplicated; Z88.2 Allergy status to sulfonamides; Z88.6 Allergy status to analgesic agent; Z88.8 Allergy status to other drugs, medicaments and biological substances; Z91.040 Latex allergy status; Z98.891 History of uterine scar from previous surgery; Z79.899 Other long term (current) drug therapy
CPT/HCPCS: 36415; 71045; 80048; 80053; 81003; 82948; 83735; 83930; 83935; 84100; 84300; 84439; 84443; 85025; 85610; 85730; 87070; 93306; 94640; 94760; 97110; 97116; 97161; 97535; G0378; J0360; J1644; J1940; J2405; J2930; J7030

== ENCOUNTER 2023-04-14 05:42 | Inpatient (IN) | payer MEDICAID ==
[2023-04-14] VITALS (17 sets, daily range): BP systolic 114–164; BP diastolic 62–110; PULSE 87–108; RESP 15–24; TEMP 96.3–98.4; O2SAT 93–99
[~2023-04-14] VITALS: Ht 160 cm; Wt 63.9 kg
[~2023-04-14 05:42] MED LIST: ALBU18HF2 INH; ALBU8.5H17 IH; BECL7.3A INH; ESOM20CA PO; IPRA3AMP9 NEB; LABE100T8 PO; LOSA50TA64 PO; PRED5TAB PO
--- NOTE | 2023-04-14 09:00 | NUR ---
Patient arrived via [employer] and transferred to hospital bed and placed on bedside monitor. Vital signs stable and patient alert and oriented. Patient oriented with call light. Admitting MD notified of new patient arrival.
[2023-04-14] MEDS ORDERED: mag hydrox/Alum hydrox/simeth 30ml oral suspension PO PRN (09:10)
[2023-04-14] MEDS ORDERED: potassium Cl 40MEQ/1/2NS 520ml 520 ML IV PRN (09:10)
[2023-04-14] MEDS ORDERED: magnesium 4gm in 100ml NS 100 ML IV PRN (09:10)
[2023-04-14] MEDS ORDERED: magnesium Cl slow-release 64mg tablet PO PRN (09:10)
[2023-04-14] MEDS ORDERED: acetaminophen 325mg tablet PO PRN ×3 (09:10→10:55)
[2023-04-14] MEDS: acetaminophen 325mg tablet PO PRN (09:27)
[2023-04-14] MEDS ORDERED: labetalol 100mg tablet PO SCH (10:08)
[2023-04-14] MEDS: folic acid 1mg tablet PO SCH (10:09)
[2023-04-14] MEDS: thiamine 100mg tablet PO SCH (10:09)
[2023-04-14] MEDS ORDERED: ondansetron/PF 4mg/2ml inj IV PRN (10:55)
[2023-04-14] MEDS ORDERED: magnesium hydroxide 30ml (MOM) UD suspension PO PRN (10:55)
[2023-04-14] MEDS ORDERED: morphine 2 MG/ML inj. syringe IV PRN (10:55)
[2023-04-14] MEDS: chlordiazePOXIDE 25mg capsule PO SCH ×2 (10:57→19:56)
[2023-04-14] MEDS: multivitamins, therapeutics tablet PO SCH (10:59)
[2023-04-14 11:42] LABS: BASOPHILS % (AUTO) 0.2 % (0-1); EOSINOPHILS % (AUTO) 0.1 % (0-6); HEMATOCRIT 30.9 % (35.0-45.0); HEMOGLOBIN 10.9 g/dl (12.0-16.0); LYMPHOCYTES # (AUTO) 0.3 X10'3 (1.1-4.8); LYMPHOCYTES % (AUTO) 3.8 % (21-51); MEAN CORPUSCULAR HEMOGLOBIN 35.3 PG (27.0-31.0); MEAN CORPUSCULAR HGB CONC 35.3 g/dL (33.0-36.5); MEAN PLATELET VOLUME 8.4 FL (7.4-10.4); MONOCYTES % (AUTO) 11.1 % (2-12); NEUTROPHILS # (AUTO) 7.7 X10'3 (1.8-7.7); NEUTROPHILS % (AUTO) 84.8 % (42-75); PLATELET COUNT 258 X10'3 (140-440); RED BLOOD COUNT 3.09 X10'6 (4.20-5.60); RED CELL DISTRIBUTION WIDTH 13.9 % (11.5-14.5); WHITE BLOOD COUNT 9.1 X10'3 (4.5-11.0)
[2023-04-14 11:54] LABS: ALANINE AMINOTRANSFERASE 32 U/L (12-78); ALBUMIN 2.8 G/DL (3.4-5.0); ALBUMIN/GLOBULIN RATIO 0.9 (1.1-1.5); ALKALINE PHOSPHATASE 119 IU/L (46-116); ANION GAP 9 (8-16); ASPARTATE AMINO TRANSFERASE 57 U/L (10-37); BILIRUBIN,TOTAL 0.9 MG/DL (0.1-1.0); BLOOD UREA NITROGEN 7 MG/DL (7-18); BUN/CREATININE RATIO 20.6 (10.0-20.0); CALCIUM 7.6 MG/DL (8.5-10.1); CHLORIDE 79 MMOL/L (99-107); CREATININE 0.34 MG/DL (0.40-0.90); GLUCOSE 83 MG/DL (70-104); MAGNESIUM 1.5 MG/DL (1.5-2.4); TOTAL CARBON DIOXIDE 19.5 MMOL/L (24-32); eCRCL 166 ML/MIN; eGFR > 90 ML/MIN
[2023-04-14 11:56] LABS: SODIUM 107 MMOL/L (135-145)
[2023-04-14] MEDS: heparin, porcine 5000 units/ml vial SQ SCH (12:02)
[2023-04-14] MEDS: potassium Cl 20 mEq SR tablet PO PRN ×3 (12:03→20:14)
--- NOTE | 2023-04-14 12:15 | NUR ---
Critical Na of 107 and K of 3.0. MD aware. Restrict free water/fluid intake to 1.2L and replace potassium per protocol.
[2023-04-14] MEDS: ipratropium/albuterol 3ml nebule NEB PRN ×2 (13:19→20:26)
[2023-04-14] MEDS ORDERED: BUDE0.5A3 NEB (15:09)
[2023-04-14] MEDS ORDERED: ALBU6.7H14 IH (16:15)
[2023-04-14] MEDS ORDERED: IPRA3AMP31 NEB (16:15)
--- NOTE | 2023-04-14 18:17 | NUR ---
Problems reprioritized. Patient report given, questions answered & plan of care reviewed with Veronique CARRILLO.
[2023-04-14 18:21] LABS: ALBUMIN 2.7 G/DL (3.4-5.0); ANION GAP 8 (8-16); BLOOD UREA NITROGEN 6 MG/DL (7-18); BUN/CREATININE RATIO 17.6 (10.0-20.0); CALCIUM 7.9 MG/DL (8.5-10.1); CHLORIDE 79 MMOL/L (99-107); CREATININE 0.34 MG/DL (0.40-0.90); GLUCOSE 99 MG/DL (70-104); MAGNESIUM 1.5 MG/DL (1.5-2.4); POTASSIUM 3.2 MMOL/L (3.5-5.1); TOTAL CARBON DIOXIDE 19.4 MMOL/L (24-32); eCRCL 166 ML/MIN; eGFR > 90 ML/MIN
--- NOTE | 2023-04-14 18:30 | NUR ---
Patient in room ORTHO 4020. I have received report from GERARDO Piper and had the opportunity to ask questions and assume patient care.
[2023-04-14 18:37] LABS: SODIUM 106 MMOL/L (135-145)
--- NOTE | 2023-04-14 19:11 | NUR ---
transfer to 4020A per bed , alert and oriented , denies pain , complaints of food , eat 50% of her dinner . report given to LASHAUN CARRILLO
[2023-04-14] MEDS ORDERED: LORazepam 2 mg/ml vial IV PRN (19:30)
[2023-04-14] MEDS ORDERED: LORazepam 1 MG tablet PO PRN (19:30)
[2023-04-14 19:43] LABS: BILIRUBIN,URINE NEGATIVE (Neg); CLARITY,URINE CLOUDY (Clear); COLOR,URINE YELLOW (Yellow); GLUCOSE, URINE NEGATIVE (Neg); KETONES,URINE TRACE mg/dl (Neg); LEUKOCYTE ESTERASE ,URINE TRACE (Neg); NITRITES, URINE NEGATIVE (Neg); OCCULT BLOOD,URINE TRACE-INTACT (Neg); PROTEIN,URINE TRACE mg/dl (Neg)
[2023-04-14 19:56] LABS: UA COLLECTION TYPE NON-SPECIFIED
[2023-04-14] MEDS: labetalol 100mg tablet PO SCH (19:56)
[2023-04-14 19:57] LABS: AMORPHOUS URATES 1+; BACTERIA,URINE 4+ /HPF (Neg); RBC,URINE 0-2 /HPF (0-2); SQUAMOUS EPITHELIAL CELL,UR FEW /LPF (FEW)
[2023-04-14] MEDS: budesonide 0.5mg/2ml UD nebule IH SCH (20:25)
[2023-04-14 23:43] LABS: ALBUMIN 2.6 G/DL (3.4-5.0); ANION GAP 5 (8-16); BLOOD UREA NITROGEN 5 MG/DL (7-18); BUN/CREATININE RATIO 13.5 (10.0-20.0); CALCIUM 7.7 MG/DL (8.5-10.1); CHLORIDE 78 MMOL/L (99-107); CREATININE 0.37 MG/DL (0.40-0.90); GLUCOSE 88 MG/DL (70-104); MAGNESIUM 1.3 MG/DL (1.5-2.4); POTASSIUM 3.4 MMOL/L (3.5-5.1); TOTAL CARBON DIOXIDE 22.1 MMOL/L (24-32); eCRCL 152 ML/MIN; eGFR > 90 ML/MIN
[2023-04-14 23:45] LABS: SODIUM 105 MMOL/L (135-145)
[2023-04-15] VITALS (14 sets, daily range): BP systolic 90–175; BP diastolic 54–111; PULSE 83–117; RESP 16–28; TEMP 97.2–98.4; O2SAT 84–100
[2023-04-15] MEDS: heparin, porcine 5000 units/ml vial SQ SCH ×3 (00:21→16:00)
[2023-04-15] MEDS: potassium Cl 20 mEq SR tablet PO PRN ×2 (02:03→09:10)
[2023-04-15] MEDS: chlordiazePOXIDE 25mg capsule PO SCH ×5 (02:06→21:20)
[2023-04-15] MEDS: ipratropium/albuterol 3ml nebule NEB PRN ×3 (04:16→12:56)
--- NOTE | 2023-04-15 06:39 | NUR ---
Patient in room ORTHO 4020. I have received report from GERARDO Aguillon and had the opportunity to ask questions and assume patient care.
[2023-04-15] MEDS: pantoprazole 40mg Tablet.DR PO SCH (07:30)
[2023-04-15] MEDS: budesonide 0.5mg/2ml UD nebule IH SCH ×2 (08:05→20:13)
[2023-04-15 08:59] LABS: MAGNESIUM 1.5 MG/DL (1.5-2.4)
[2023-04-15] MEDS: thiamine 100mg tablet PO SCH (09:10)
[2023-04-15] MEDS: folic acid 1mg tablet PO SCH (09:10)
[2023-04-15] MEDS: multivitamins, therapeutics tablet PO SCH (09:10)
[2023-04-15] MEDS: labetalol 100mg tablet PO SCH ×2 (09:10→20:46)
[2023-04-15] MEDS: acetaminophen 325mg tablet PO PRN (09:35)
[2023-04-15 11:51] LABS: BASOPHILS % (AUTO) 0.1 % (0-1); EOSINOPHILS % (AUTO) 0.1 % (0-6); HEMATOCRIT 32.2 % (35.0-45.0); HEMOGLOBIN 10.7 g/dl (12.0-16.0); LYMPHOCYTES # (AUTO) 0.2 X10'3 (1.1-4.8); LYMPHOCYTES % (AUTO) 1.3 % (21-51); MEAN CORPUSCULAR HEMOGLOBIN 34.1 PG (27.0-31.0); MEAN CORPUSCULAR HGB CONC 33.3 g/dL (33.0-36.5); MEAN CORPUSCULAR VOLUME 102.3 FL (78-98); MEAN PLATELET VOLUME 8.9 FL (7.4-10.4); MONOCYTES # (AUTO) 1.2 X10'3 (0-0.9); NEUTROPHILS # (AUTO) 11.7 X10'3 (1.8-7.7); NEUTROPHILS % (AUTO) 89.5 % (42-75); PLATELET COUNT 276 X10'3 (140-440); RED BLOOD COUNT 3.14 X10'6 (4.20-5.60); RED CELL DISTRIBUTION WIDTH 13.8 % (11.5-14.5); WHITE BLOOD COUNT 13.1 X10'3 (4.5-11.0)
[2023-04-15 11:59] LABS: ALANINE AMINOTRANSFERASE 29 U/L (12-78); ALBUMIN 2.9 G/DL (3.4-5.0); ALBUMIN/GLOBULIN RATIO 0.9 (1.1-1.5); ALKALINE PHOSPHATASE 118 IU/L (46-116); ANION GAP 8 (8-16); ASPARTATE AMINO TRANSFERASE 45 U/L (10-37); BILIRUBIN,TOTAL 0.5 MG/DL (0.1-1.0); BLOOD UREA NITROGEN 5 MG/DL (7-18); BUN/CREATININE RATIO 15.2 (10.0-20.0); CALCIUM 7.8 MG/DL (8.5-10.1); CHLORIDE 79 MMOL/L (99-107); CREATININE 0.33 MG/DL (0.40-0.90); GLUCOSE 114 MG/DL (70-104); POTASSIUM 4.5 MMOL/L (3.5-5.1); TOTAL CARBON DIOXIDE 17.9 MMOL/L (24-32); TOTAL PROTEIN 6.3 G/DL (6.4-8.2); eCRCL 171 ML/MIN; eGFR > 90 ML/MIN
[2023-04-15 12:02] LABS: SODIUM 105 MMOL/L (135-145)
[2023-04-15] MEDS ORDERED: TOLVAPTAN 30 MG TABLET PO ONE (12:20)
--- NOTE | 2023-04-15 12:33 | NUR ---
PAGER ID: [phone] MESSAGE: shaun perez [phone] re: Timmy Hilario 4020a. May we have order for straight cath for U/A? Thank you
--- NOTE | 2023-04-15 13:47 | NUR ---
Misc nursing order - straight cath pt to obtain a UA. Addendum: 04/15/23 at 1349 by Mateo Adhikari LVN, LVN Amended: Links added.
[2023-04-15] MEDS ORDERED: furosemide 40mg/4ml inj IV ONE (14:25)
[2023-04-15] MEDS ORDERED: PERFLUTREN PROTEIN-A MICROSPHR (Optison) 0.22 MG/ML 3ML VIAL IV ONE (14:25)
--- NOTE | 2023-04-15 14:45 | NUR ---
WOMEN'S ACTIVITIES ADVISER documentation: I have reviewed and agree with all interventions, assessments performed and documented by Mateo Moss LVN.
[2023-04-15 15:00] LABS: BILIRUBIN,URINE NEGATIVE (Neg); CLARITY,URINE CLOUDY (Clear); COLOR,URINE YELLOW (Yellow); GLUCOSE, URINE NEGATIVE (Neg); KETONES,URINE 15 mg/dl (Neg); LEUKOCYTE ESTERASE ,URINE TRACE (Neg); NITRITES, URINE POSITIVE (Neg); OCCULT BLOOD,URINE NEGATIVE (Neg); PH,URINE 5.5 (4.8-8.0); PROTEIN,URINE TRACE mg/dl (Neg)
[2023-04-15 15:08] LABS: UA COLLECTION TYPE STRAIGHT CATH
[2023-04-15 15:12] LABS: BACTERIA,URINE 4+ /HPF (Neg); MUCUS STRANDS NONE SEEN /LPF (Neg); RBC,URINE 0-2 /HPF (0-2); SQUAMOUS EPITHELIAL CELL,UR MODERATE /LPF (FEW); WBC CLUMPS,URINE FEW /HPF (NEGATIVE); WBC,URINE 20-30 /HPF (0-4)
[2023-04-15 15:28] LABS: UA EOSINOPHILS NO EOS /HPF
[2023-04-15 16:21] LABS: ABG BASE EXCESS -6.2 mmol/L (-2.0-2.0); ABG HCO3 18.2 mmol/L (22.0-26.0); ABG OXYGEN SATURATION 99.5 % (94-97); ABG PCO2 (T) 31.7 mmHg (32.0-45.0); ABG PH (T) 7.374 (7.350-7.450); ABG PO2 (T) 132.6 mmHg (75.0-100.0); ALLEN'S TEST POSITIVE; FHHb 0.5 % (0.0-5.0); FLOW 4 L/min; FMetHb 0.3 % (0.0-1.5); FO2Hb 98.2 % (94-97); MODE NASAL CANNULA; PATIENT TEMPERATURE 36.6; TOTAL HEMOGLOBIN 11.6 G/dl (12.0-16.0)
[2023-04-15] MEDS: vancomycin/NS 1 GM ADD-VANTAGE 250 ML IV SCH (17:02)
--- NOTE | 2023-04-15 18:52 | NUR ---
Patient in room ORTHO 4020. I have received report from CASITLLO YIP and had the opportunity to ask questions and assume patient care.
[2023-04-15 20:20] LABS: ALBUMIN 2.7 G/DL (3.4-5.0); ANION GAP 5 (8-16); BLOOD UREA NITROGEN 4 MG/DL (7-18); BUN/CREATININE RATIO 10.5 (10.0-20.0); CALCIUM 8.2 MG/DL (8.5-10.1); CHLORIDE 84 MMOL/L (99-107); CREATININE 0.38 MG/DL (0.40-0.90); GLUCOSE 93 MG/DL (70-104); POTASSIUM 3.8 MMOL/L (3.5-5.1); TOTAL CARBON DIOXIDE 24.4 MMOL/L (24-32); eCRCL 148 ML/MIN; eGFR > 90 ML/MIN
[2023-04-15 20:32] LABS: SODIUM 113 MMOL/L (135-145)
[2023-04-15 20:33] LABS: OSMOLALITY 232 MOSM/K (280-300)
[2023-04-15] MEDS: furosemide 20 MG/2 ML vial IV SCH (20:46)
[2023-04-16] VITALS (10 sets, daily range): BP systolic 106–126; BP diastolic 60–73; PULSE 79–99; RESP 16–28; TEMP 97.2–97.4; O2SAT 95–100
[2023-04-16] MEDS: piperacillin/tazo 4.5gm/100ml 100 ML IV SCH ×4 (00:07→23:56)
[2023-04-16] MEDS: heparin, porcine 5000 units/ml vial SQ SCH ×4 (00:08→23:56)
[2023-04-16 01:08] LABS: ALBUMIN 2.5 G/DL (3.4-5.0); ANION GAP 5 (8-16); BLOOD UREA NITROGEN 5 MG/DL (7-18); BUN/CREATININE RATIO 13.2 (10.0-20.0); CALCIUM 8.2 MG/DL (8.5-10.1); CHLORIDE 86 MMOL/L (99-107); CREATININE 0.38 MG/DL (0.40-0.90); GLUCOSE 90 MG/DL (70-104); POTASSIUM 3.5 MMOL/L (3.5-5.1); TOTAL CARBON DIOXIDE 24.3 MMOL/L (24-32); eCRCL 148 ML/MIN; eGFR > 90 ML/MIN
[2023-04-16 01:14] LABS: SODIUM 115 MMOL/L (135-145)
--- NOTE | 2023-04-16 02:48 | NUR ---
2000 ATTEMPTED TO SCAN LIBRIUM, CONTACTED PHARMACIST ABOUT RECEIVING A MSG "UNKNOWN NDC" RX SCANNED BY PHARMACIST AND INFORMED ME IT SCANNED FOR HIM. MED BROUGHT TO THE FLOOR FOR ME TO SCAN AND ADMINISTER TO PATIENT, AGAIN RC'D MESSAGE 'UNKNOWN NDC". ADMINISTERED MEDICATION USING THE ADMINISTER BUTTON AND NOTIFIED RJ THAT THE PROBLEM SEEMED TO BE RELATED TO THE SCANNER ON THE COMPUTER I WAS USING. HAD A COUPLE OTHER INSTANCES ON OTHER PATIENT'S MEDS WELL AND MADE NOTE OF THIS WELL.
[2023-04-16] MEDS: vancomycin/NS 1 GM ADD-VANTAGE 250 ML IV SCH ×2 (04:02→15:20)
[2023-04-16] MEDS: chlordiazePOXIDE 25mg capsule PO SCH ×4 (04:03→22:00)
--- NOTE | 2023-04-16 06:04 | NUR ---
Problems reprioritized. Patient report given, questions answered & plan of care reviewed with JAMI CARRILLO.
--- NOTE | 2023-04-16 06:41 | NUR ---
Patient in room ORTHO 4020. I have received report from Asya CARRILLO and had the opportunity to ask questions and assume patient care.
[2023-04-16 07:39] LABS: ALBUMIN 2.6 G/DL (3.4-5.0); ANION GAP 7 (8-16); BLOOD UREA NITROGEN 4 MG/DL (7-18); BUN/CREATININE RATIO 8.2 (10.0-20.0); CALCIUM 8.6 MG/DL (8.5-10.1); CHLORIDE 86 MMOL/L (99-107); CREATININE 0.49 MG/DL (0.40-0.90); GLUCOSE 93 MG/DL (70-104); MAGNESIUM 1.6 MG/DL (1.5-2.4); POTASSIUM 3.3 MMOL/L (3.5-5.1); THYROID STIMULATING HORMONE 3.03 ulU/ml (0.34-4.50); TOTAL CARBON DIOXIDE 24.5 MMOL/L (24-32); eCRCL 115 ML/MIN; eGFR > 90 ML/MIN
[2023-04-16 07:40] LABS: SODIUM 117 MMOL/L (135-145)
[2023-04-16] MEDS: budesonide 0.5mg/2ml UD nebule IH SCH ×2 (07:45→20:01)
[2023-04-16] MEDS: ipratropium/albuterol 3ml nebule NEB PRN ×2 (07:48→20:01)
[2023-04-16] MEDS: pantoprazole 40mg Tablet.DR PO SCH (07:53)
[2023-04-16] MEDS: labetalol 100mg tablet PO SCH ×2 (07:54→20:00)
[2023-04-16] MEDS: multivitamins, therapeutics tablet PO SCH (07:54)
[2023-04-16] MEDS: folic acid 1mg tablet PO SCH (07:54)
[2023-04-16] MEDS: thiamine 100mg tablet PO SCH (08:00)
[2023-04-16] MEDS: furosemide 20 MG/2 ML vial IV SCH ×2 (08:00→20:45)
--- NOTE | 2023-04-16 09:28 | NUR ---
Noted pt with a low Vladislav of 11. Per RN/ENTRY CLERK skin assessment pt with an abrasion to bilat knees and small abrasion to forehead. No wound care consult in place at this time. Pt currently on a regular diet and eating poorly, documented with 50-75% PO intake of first two meals though down to 0-25% PO intake of three following meals. Pt admit for hyponatremia, PNA, metabolic encephalopathy, acute respiratory failure with hypoxemia, and anemia. Per physician note pt still encephalopathic, likely impacting PO intake. IF meal intake does not improve pt would benefit from ONS to optimize nutrient intake versus NGT placement for EN, though hopefully mentation will improve as serum Na normalizes and subsequently PO intake increases. Will continue to follow closely and make recommendations as appropriate pending further trends in PO intake. Addendum: 04/16/23 at [address] Amended: Links added.
[2023-04-16] MEDS ORDERED: TOLVAPTAN 30 MG TABLET PO ONE (10:27)
--- NOTE | 2023-04-16 10:48 | NUR ---
PAGER ID: [phone] MESSAGE: 4020A held Lasix this morning, patients SBP was 106. Lulu [phone] Addendum: 04/16/23 at 1049 by Lulu Glover RN Dr. Law returned page, verified it was ok to hold medication.
[2023-04-16] MEDS ORDERED: POTASSIUM BICARB 20meq eff tab 20 MEQ TABLET.EFF PO PRN (12:25)
[2023-04-16 12:31] LABS: C DIFF ANTIGEN NEGATIVE (NEGATIVE); C DIFF SPECIMEN=DIARRHEA? ACCEPTABLE; C DIFFICILE TOXINS A&B NEGATIVE (Neg)
[2023-04-16 13:27] LABS: ALBUMIN 2.6 G/DL (3.4-5.0); ANION GAP 4 (8-16); BLOOD UREA NITROGEN 4 MG/DL (7-18); BUN/CREATININE RATIO 7.5 (10.0-20.0); CALCIUM 8.4 MG/DL (8.5-10.1); CHLORIDE 88 MMOL/L (99-107); CREATININE 0.53 MG/DL (0.40-0.90); GLUCOSE 114 MG/DL (70-104); POTASSIUM 3.1 MMOL/L (3.5-5.1); TOTAL CARBON DIOXIDE 26.1 MMOL/L (24-32); eCRCL 106 ML/MIN; eGFR > 90 ML/MIN
[2023-04-16 13:36] LABS: SODIUM 118 MMOL/L (135-145)
[2023-04-16] MEDS ORDERED: potassium Cl 40MEQ/1/2NS 520ml 520 ML IV ONE (15:30)
--- NOTE | 2023-04-16 17:28 | NUR ---
Patient needs bedside swallow eval. Order placed. Addendum: 04/16/23 at 1729 by Lulu Glover RN Amended: Links added.
--- NOTE | 2023-04-16 17:38 | NUR ---
PAGER ID: [phone] MESSAGE: Would you like 4020A Jennie to have fluids, we are placing her NPO until bedside swallow is completed by Larry. Lawson [phone]
[2023-04-16] MEDS: normal saline 500ml IV soln 500 ML IV PRN (17:46)
--- NOTE | 2023-04-16 17:53 | NUR ---
Student documentation: I have reviewed interventions, assessments performed and documented by Nhung SOLIS of [facility]. Student Medication Administration: For all medication-pass' in the time frame of 0600 - 1830, all medication were reviewed, dispensed, administered and documented per hospital policy by Nhung SOLIS of [facility] .
--- NOTE | 2023-04-16 18:08 | NUR ---
Problems reprioritized. Patient report given, questions answered & plan of care reviewed with Asya CARRILLO.
[2023-04-16 20:18] LABS: ALBUMIN 2.6 G/DL (3.4-5.0); ANION GAP 6 (8-16); BLOOD UREA NITROGEN 3 MG/DL (7-18); BUN/CREATININE RATIO 7.1 (10.0-20.0); CALCIUM 8.7 MG/DL (8.5-10.1); CHLORIDE 95 MMOL/L (99-107); CREATININE 0.42 MG/DL (0.40-0.90); GLUCOSE 109 MG/DL (70-104); POTASSIUM 3.2 MMOL/L (3.5-5.1); SODIUM 125 MMOL/L (135-145); TOTAL CARBON DIOXIDE 24.2 MMOL/L (24-32); eCRCL 134 ML/MIN; eGFR > 90 ML/MIN
--- NOTE | 2023-04-16 22:01 | NUR ---
2129 DR. RAZO ORDERED [facility]. EXPLAINED TO PATIENT WHAT HE HAS ORDERED FOR HER AND WHY, SHE IS ADAMANTLY REFUSING TO HAVE A CORPAK PLACED AT THIS TIME. I EXPLAINED TO HER THAT WE NEED TO HAVE HER NPO UNTIL WE CAN HAVE SPEECH THERAPY EVALUATE PATIENT'S SWALLOWING AND THAT THE CORPAK WOULD ENABLE US TO GIVE HER NUTRITION. PATIENT STATED "YOU AREN'T PUTTING THAT THING IN MY NOSE, NO, I DO NOT WANT IT".
--- NOTE | 2023-04-16 22:17 | NUR ---
2045 LASIX GIVEN ORDERED AND SCANNED IT PRIOR TO ADMINISTRATION, BUT DID NOT SAVE.
[2023-04-17] VITALS (10 sets, daily range): BP systolic 121–179; BP diastolic 79–111; PULSE 83–96; RESP 11–20; TEMP 97.5–97.8; O2SAT 94–97
[2023-04-17] MEDS ORDERED: VANCOMYCIN LEVEL IV ONE (03:30)
[2023-04-17] MEDS: vancomycin/NS 1 GM ADD-VANTAGE 250 ML IV SCH (03:38)
[2023-04-17] MEDS: chlordiazePOXIDE 25mg capsule PO SCH ×4 (03:43→20:56)
[2023-04-17 04:17] LABS: ALBUMIN 2.5 G/DL (3.4-5.0); ANION GAP 6 (8-16); BLOOD UREA NITROGEN 4 MG/DL (7-18); BUN/CREATININE RATIO 10.3 (10.0-20.0); CALCIUM 8.8 MG/DL (8.5-10.1); CHLORIDE 98 MMOL/L (99-107); CREATININE 0.39 MG/DL (0.40-0.90); GLUCOSE 105 MG/DL (70-104); MAGNESIUM 1.8 MG/DL (1.5-2.4); POTASSIUM 3.5 MMOL/L (3.5-5.1); SODIUM 129 MMOL/L (135-145); VANCOMYCIN,TROUGH 13.9 ug/mL (10.0-20.0); eCRCL 144 ML/MIN; eGFR > 90 ML/MIN
[2023-04-17 06:12] LABS: BASOPHILS # (AUTO) 0.1 X10'3 (0-0.2); BASOPHILS % (AUTO) 0.6 % (0-1); EOSINOPHILS % (AUTO) 0.5 % (0-6); HEMATOCRIT 28.3 % (35.0-45.0); LYMPHOCYTES # (AUTO) 0.4 X10'3 (1.1-4.8); LYMPHOCYTES % (AUTO) 3.3 % (21-51); MEAN CORPUSCULAR HEMOGLOBIN 36.1 PG (27.0-31.0); MEAN CORPUSCULAR HGB CONC 35.2 g/dL (33.0-36.5); MEAN CORPUSCULAR VOLUME 102.5 FL (78-98); MEAN PLATELET VOLUME 8.3 FL (7.4-10.4); MONOCYTES # (AUTO) 1.6 X10'3 (0-0.9); MONOCYTES % (AUTO) 14.6 % (2-12); NEUTROPHILS # (AUTO) 8.7 X10'3 (1.8-7.7); PLATELET COUNT 317 X10'3 (140-440); RED BLOOD COUNT 2.76 X10'6 (4.20-5.60); RED CELL DISTRIBUTION WIDTH 14.1 % (11.5-14.5); WHITE BLOOD COUNT 10.8 X10'3 (4.5-11.0)
[2023-04-17 06:24] LABS: ALBUMIN 2.5 G/DL (3.4-5.0); ANION GAP 7 (8-16); BLOOD UREA NITROGEN 4 MG/DL (7-18); BUN/CREATININE RATIO 9.1 (10.0-20.0); CALCIUM 8.6 MG/DL (8.5-10.1); CHLORIDE 97 MMOL/L (99-107); CREATININE 0.44 MG/DL (0.40-0.90); GLUCOSE 101 MG/DL (70-104); POTASSIUM 3.4 MMOL/L (3.5-5.1); SODIUM 129 MMOL/L (135-145); TOTAL CARBON DIOXIDE 24.7 MMOL/L (24-32); eCRCL 128 ML/MIN; eGFR > 90 ML/MIN
--- NOTE | 2023-04-17 06:27 | NUR ---
Problems reprioritized. Patient report given, questions answered & plan of care reviewed with JAMI CARRILLO.
--- NOTE | 2023-04-17 06:37 | NUR ---
Patient refusing Corpak.
[2023-04-17] MEDS: pantoprazole 40mg Tablet.DR PO SCH (07:30)
[2023-04-17] MEDS: budesonide 0.5mg/2ml UD nebule IH SCH ×2 (07:48→19:54)
[2023-04-17] MEDS: ipratropium/albuterol 3ml nebule NEB PRN ×2 (07:48→19:54)
[2023-04-17] MEDS: multivitamins, therapeutics tablet PO SCH (08:00)
[2023-04-17] MEDS: folic acid 1mg tablet PO SCH (08:00)
[2023-04-17] MEDS: thiamine 100mg tablet PO SCH (08:00)
[2023-04-17] MEDS: labetalol 100mg tablet PO SCH ×2 (08:00→20:00)
[2023-04-17] MEDS: piperacillin/tazo 4.5gm/100ml 100 ML IV SCH ×3 (08:19→23:59)
[2023-04-17] MEDS: heparin, porcine 5000 units/ml vial SQ SCH ×2 (08:20→15:43)
--- NOTE | 2023-04-17 08:43 | NUR ---
patient is awake and telling me that she would like to try to swallow, I asked the patient her name and date of and she answered 'I know my name' but did not answer the question or her date of I sat the patient up at 90 degrees and handed her a cup of water with a straw and she began to cough, I asked the patient if at home she has issues of coughing after drinking fluids, patient said 'yes i do have problems at home swallowing' I took the water away and educated the patient about aspiration pneumonia and the dangers of aspiration pneumonia continue to keep the patient npo til swallow evaluation can be completed by speech therapist
[2023-04-17] MEDS: furosemide 20 MG/2 ML vial IV SCH ×2 (10:00→20:51)
[2023-04-17 10:11] LABS: PRO BRAIN NATRIURETIC PEPTIDE 941 PG/ML (0-125)
--- NOTE | 2023-04-17 11:40 | NUR ---
TF Consult: Pt w/ probable potomania from excess etoh trouble swallowing w/ MD recommending NGTF to start per EMR. Pt 50% avg first 3 regular meals though declined to 0% past 2 days w/ trouble swallowing now NPO pending PROJECT CONTROL OFFICER BSS in AM. Pt admits to hx swallowing issues at home LINING MARKER per RN note. Pt refusing NG placement per EMR; CLAUDIO d/w RN who confirms pt does not wish to have NG still refusing. Thiamine, folic acid and MVI all PO though to change to IV if fails PROJECT CONTROL OFFICER BSS tomorrow per RN this AM. Will monitor for PO trends and nutrition intervention needs. Rec: 1. continue regular diet as medically indicated; pending PROJECT CONTROL OFFICER BSS 2. Monitor for ONS needs pending PO safety and trends pending PROJECT CONTROL OFFICER recs 3. routine thiamine, folic acid, and MVI for etoh hx Addendum: 04/17/23 at [address] Amended: Links added.
--- NOTE | 2023-04-17 12:06 | NUR ---
Patient still refusing corpak insertion. Educated patient on the need for the corpak, patient shaking her head "NO" while being educated.
--- NOTE | 2023-04-17 15:22 | NUR ---
Talked to concerning her issues with a fall at home before coming into the hospital. CT of the head is being ordered.
[2023-04-17] MEDS ORDERED: potassium Cl 40MEQ/1/2NS 520ml 520 ML IV PRN (15:35)
[2023-04-17] MEDS ORDERED: potassium Cl 40MEQ/1/2NS 520ml 520 ML IV ONE (15:45)
[2023-04-17] MEDS: VANCOmycin 1250MG/NS 250ml Bag 250 ML IV SCH (15:50)
--- NOTE | 2023-04-17 19:09 | NUR ---
Patient in room ORTHO 4020. I have received report from JAMI CARRILLO and had the opportunity to ask questions and assume patient care.
[2023-04-18] VITALS (13 sets, daily range): BP systolic 149–183; BP diastolic 50–107; PULSE 77–97; RESP 12–23; TEMP 97.4–97.6; O2SAT 92–98
[2023-04-18] MEDS: heparin, porcine 5000 units/ml vial SQ SCH ×4 (00:03→23:56)
--- NOTE | 2023-04-18 00:26 | NUR ---
192 PATIENT PULLED OUT 20G PIV IN LWRIST, "I DIDN'T WANT IT ANYMORE". CATH TIP NARROW AND INTACT. ATTEMPTED TO PLACE NEW PIV X3 WITHOUT SUCCESS. WILL LET PATIENT REST AND ATTEMPT AGAIN TO PLACE ANOTHER IV ACCESS. LINEN CHANGED AND NEW PURWICK IN PLACE AFTER GIVING PERICARE. ATTEMPTED TO REPOSITION PATIENT BUT SOON PILLOWS ARE PLACED TO KEEP PATIENT ON HER L SIDE SHE IS SCOOTING AWAY FROM THEM AND ON HER BACK. PATIENT EDUCATED ON THE IMPORTANCE TO BE OFF HER BACK, AND SHE STATED "I KNOW, I KNOW, BUT I DON'T LIKE IT". WILL MONITOR PATIENT AND TRY TO PLACE HER ON HER SIDE AGAIN. RAILS UP X4 FOR SZ PRECAUTIONS WITH PADS AND BED ALARM IN USE. CALL LIGHT IN REACH.
[2023-04-18] MEDS: ipratropium/albuterol 3ml nebule NEB PRN ×3 (02:21→20:06)
[2023-04-18] MEDS: chlordiazePOXIDE 25mg capsule PO SCH ×4 (04:00→22:17)
[2023-04-18] MEDS: normal saline 500ml IV soln 500 ML IV PRN (04:28)
[2023-04-18] MEDS: VANCOmycin 1250MG/NS 250ml Bag 250 ML IV SCH ×2 (04:28→17:20)
--- NOTE | 2023-04-18 06:26 | NUR ---
Problems reprioritized. Patient report given, questions answered & plan of care reviewed with JAMI CARRILLO.
--- NOTE | 2023-04-18 06:35 | NUR ---
Patient in room ORTHO 4020. I have received report from Asya CARRILLO and had the opportunity to ask questions and assume patient care.
[2023-04-18] MEDS: furosemide 20 MG/2 ML vial IV SCH (07:30)
[2023-04-18] MEDS: pantoprazole 40mg Tablet.DR PO SCH (07:31)
[2023-04-18] MEDS: multivitamins, therapeutics tablet PO SCH (07:31)
[2023-04-18] MEDS: thiamine 100mg tablet PO SCH (07:31)
[2023-04-18] MEDS: labetalol 100mg tablet PO SCH ×2 (07:31→19:40)
[2023-04-18] MEDS: folic acid 1mg tablet PO SCH (07:31)
[2023-04-18] MEDS: piperacillin/tazo 4.5gm/100ml 100 ML IV SCH ×3 (07:46→23:54)
[2023-04-18] MEDS: acetaminophen 325mg tablet PO PRN (07:52)
[2023-04-18] MEDS: budesonide 0.5mg/2ml UD nebule IH SCH ×2 (08:01→20:06)
--- NOTE | 2023-04-18 09:11 | NUR ---
Patient off Tele, report given to Bouchra YIP.
[2023-04-18 09:16] LABS: BASOPHILS # (AUTO) 0.1 X10'3 (0-0.2); BASOPHILS % (AUTO) 1.1 % (0-1); EOSINOPHILS # (AUTO) 0.1 X10'3 (0-0.9); HEMATOCRIT 32.4 % (35.0-45.0); HEMOGLOBIN 10.8 g/dl (12.0-16.0); LYMPHOCYTES # (AUTO) 0.5 X10'3 (1.1-4.8); MEAN CORPUSCULAR HEMOGLOBIN 34.7 PG (27.0-31.0); MEAN CORPUSCULAR HGB CONC 33.3 g/dL (33.0-36.5); MEAN PLATELET VOLUME 7.6 FL (7.4-10.4); MONOCYTES # (AUTO) 2.3 X10'3 (0-0.9); MONOCYTES % (AUTO) 18.1 % (2-12); NEUTROPHILS # (AUTO) 9.8 X10'3 (1.8-7.7); NEUTROPHILS % (AUTO) 75.8 % (42-75); PLATELET COUNT 428 X10'3 (140-440); RED BLOOD COUNT 3.12 X10'6 (4.20-5.60); RED CELL DISTRIBUTION WIDTH 14.4 % (11.5-14.5); WHITE BLOOD COUNT 12.9 X10'3 (4.5-11.0)
[2023-04-18 10:29] LABS: ALBUMIN 2.5 G/DL (3.4-5.0); ANION GAP 12 (8-16); BLOOD UREA NITROGEN 7 MG/DL (7-18); BUN/CREATININE RATIO 5.6 (10.0-20.0); CALCIUM 9.3 MG/DL (8.5-10.1); CHLORIDE 101 MMOL/L (99-107); CREATININE 1.25 MG/DL (0.40-0.90); GLUCOSE 142 MG/DL (70-104); MAGNESIUM 1.7 MG/DL (1.5-2.4); POTASSIUM 3.8 MMOL/L (3.5-5.1); SODIUM 131 MMOL/L (135-145); TOTAL CARBON DIOXIDE 17.8 MMOL/L (24-32); eCRCL 45 ML/MIN; eGFR 46 ML/MIN
[2023-04-18 12:07] LABS: TOTAL CELLS COUNTED 100
[2023-04-18 12:08] LABS: ANISOCYTOSIS 1+; BURR CELLS 1+; PLATELET ESTIMATE NORMAL
--- NOTE | 2023-04-18 12:15 | NUR ---
PRESSURE ULCER EDUCATION: DEFINITION: A pressure ulcer is an area of skin that breaks down when you stay in one position too long. The constant pressure against the skin reduces the blood flow to that area and the affected tissue dies. CAUSES: "Being bedridden or in a wheelchair "Fragile skin "Having a chronic condition, such as diabetes or vascular disease "Inability to move certain parts of your body without assistance "Older age "Incontinence of urine or stool SYMPTOMS: "A reddened area that DOES NOT turn white when pressed on - this can be the beginning of a pressure ulcer "A blister, deep sore or a crater - these can be advanced pressure ulcers FIRST AID: "Relieve the pressure on this area "Keep the area clean and dry "Call your primary doctor if you see any of the above symptoms "DO NOT massage the area "DO NOT use a donut shaped or ring shaped pillow- these actually interfere with the blood flow and cause complications PREVENTION: "Check for pressure ulcers everyday "Change position at least every two hours to relieve pressure "Use items that help relieve pressure- pillows, sheepskin, foam padding, and powders. "Keep skin clean and dry "Eat healthy well balanced meals "Exercise daily IF YOU SEE ANY OF THESE SYMPTOMS WHILE IN THE HOSPITAL - TELL YOUR NURSE IMMEDIATELY. IF YOU SEE ANY OF THESE SYMPTOMS WHILE AT HOME OR HAVE ANY QUESTIONS OR CONCERNS ABOUT PRESSURE ULCERS - CALL YOUR PRIMARY DOCTOR IMMEDIATELY. Addendum: 04/18/23 at 1215 by Asya Alcala LVN Amended: Links added.
--- NOTE | 2023-04-18 18:27 | NUR ---
Problems reprioritized. Patient report given, questions answered & plan of care reviewed with GERARDO Cleaning.
--- NOTE | 2023-04-18 18:30 | NUR ---
Patient in room ORTHO 4020. I have received report from Bouchra Pitts and had the opportunity to ask questions and assume patient care.
[2023-04-18] MEDS: guaiFENesin ER 600mg tablet PO SCH (22:18)
[2023-04-19] VITALS (10 sets, daily range): BP systolic 157–180; BP diastolic 94–99; PULSE 68–108; RESP 14–22; TEMP 96.2–97.8; O2SAT 93–99
[2023-04-19] MEDS ORDERED: VANCOMYCIN LEVEL IV ONE (03:30)
[2023-04-19 03:49] LABS: EOSINOPHILS # (AUTO) 0.3 X10'3 (0-0.9); HEMOGLOBIN 10.4 g/dl (12.0-16.0); NEUTROPHILS # (AUTO) 6.8 X10'3 (1.8-7.7)
[2023-04-19 03:51] LABS: BASOPHILS # (AUTO) 0.1 X10'3 (0-0.2); BASOPHILS % (AUTO) 1.3 % (0-1); EOSINOPHILS % (AUTO) 2.9 % (0-6); HEMATOCRIT 30.3 % (35.0-45.0); LYMPHOCYTES # (AUTO) 0.9 X10'3 (1.1-4.8); LYMPHOCYTES % (AUTO) 8.6 % (21-51); MEAN CORPUSCULAR HEMOGLOBIN 35.2 PG (27.0-31.0); MEAN CORPUSCULAR HGB CONC 34.5 g/dL (33.0-36.5); MEAN CORPUSCULAR VOLUME 102.1 FL (78-98); MEAN PLATELET VOLUME 7.4 FL (7.4-10.4); MONOCYTES # (AUTO) 2.1 X10'3 (0-0.9); MONOCYTES % (AUTO) 20.4 % (2-12); NEUTROPHILS % (AUTO) 66.8 % (42-75); PLATELET COUNT 464 X10'3 (140-440); RED BLOOD COUNT 2.97 X10'6 (4.20-5.60); RED CELL DISTRIBUTION WIDTH 14.3 % (11.5-14.5); WHITE BLOOD COUNT 10.2 X10'3 (4.5-11.0)
[2023-04-19 03:59] LABS: ALBUMIN 2.5 G/DL (3.4-5.0); ANION GAP 8 (8-16); BLOOD UREA NITROGEN 9 MG/DL (7-18); BUN/CREATININE RATIO 5.6 (10.0-20.0); CALCIUM 9.1 MG/DL (8.5-10.1); CHLORIDE 99 MMOL/L (99-107); CREATININE 1.61 MG/DL (0.40-0.90); GLUCOSE 107 MG/DL (70-104); POTASSIUM 3.4 MMOL/L (3.5-5.1); SODIUM 132 MMOL/L (135-145); TOTAL CARBON DIOXIDE 24.8 MMOL/L (24-32); eCRCL 35 ML/MIN; eGFR 34 ML/MIN
[2023-04-19] MEDS: VANCOmycin 1250MG/NS 250ml Bag 250 ML IV SCH (04:00)
[2023-04-19 04:10] LABS: VANCOMYCIN,TROUGH 57.2 ug/mL (10.0-20.0)
[2023-04-19 04:14] LABS: PLATELET ESTIMATE INCREASED; TOTAL CELLS COUNTED 100
[2023-04-19 04:16] LABS: ANISOCYTOSIS FEW; BURR CELLS 1+
[2023-04-19] MEDS: chlordiazePOXIDE 25mg capsule PO SCH ×4 (04:17→21:27)
--- NOTE | 2023-04-19 06:15 | NUR ---
Patient in room ORTHO 4020. I have received report from Hermila CARRILLO and had the opportunity to ask questions and assume patient care.
--- NOTE | 2023-04-19 06:15 | NUR ---
Problems reprioritized. Patient report given, questions answered & plan of care reviewed with Meagan YIP.
[2023-04-19] MEDS: ipratropium/albuterol 3ml nebule NEB PRN ×2 (08:10→19:34)
[2023-04-19] MEDS: budesonide 0.5mg/2ml UD nebule IH SCH ×2 (08:10→19:34)
[2023-04-19] MEDS: thiamine 100mg tablet PO SCH (08:21)
[2023-04-19] MEDS: labetalol 100mg tablet PO SCH ×2 (08:21→21:38)
[2023-04-19] MEDS: folic acid 1mg tablet PO SCH (08:21)
[2023-04-19] MEDS: guaiFENesin ER 600mg tablet PO SCH ×2 (08:21→21:28)
[2023-04-19] MEDS: multivitamins, therapeutics tablet PO SCH (08:21)
[2023-04-19] MEDS: heparin, porcine 5000 units/ml vial SQ SCH ×3 (08:22→23:55)
[2023-04-19] MEDS: POTASSIUM BICARB 20meq eff tab 20 MEQ TABLET.EFF PO PRN ×3 (09:12→21:35)
--- NOTE | 2023-04-19 10:44 | NUR ---
Initial: Pt admit for hyponatremia, pneumonia, metabolic encephalopathy, recent fall with possible head trauma, slurred speech, acute respiratory failure with hypoxemia, and odynophagia per EMR. Pt on a pureed nectar thick liquids per MANAGER SPECIAL EVENTS recs on 04/18 per EMR. Though noted incorrect diet entered in EMR; discussed with RN. Average PO intake of 17% for the last three meals since received pureed diet including 25% for two meals and refusal for last meal not meeting estimated kcal and protein needs. Pt seen at bedside is agreeable to Ensure Enlive TIDWM chocolate flavor; MD notified. LBM on 04/17 per EMR. Will continue to monitor and make recommendations as appropriate. Rec: 1. continue pureed diet/nectar thick liquids per MANAGER SPECIAL EVENTS; encourage PO intake 2. Chocolate Ensure Enlive TIDWM;pending physician approval in EMR 3. continue routine thiamine, folic acid, and MVI for etoh hx 4. routine bowel care 5. weekly weights Addendum: 04/19/23 at [address] Amended: Links added.
[2023-04-19] MEDS: lactose-reduced food (Ensure Enlive) - 237ml bottle PO SCH ×3 (13:00→17:50)
--- NOTE | 2023-04-19 14:48 | NUR ---
gave patietn her 2nd dose of K replacement. Wasn't able to scan patietn bracelet or medication due to scanner not working.
--- NOTE | 2023-04-19 15:01 | NUR ---
Received order for consult. Met with patient in regards to alcohol use and to see if patient was interested in resources for treatment options. Patient declined.
--- NOTE | 2023-04-19 15:35 | NUR ---
Patient called and wanted an update on patient. It was extremely hard to understand due to the cellular service. I asked him if I can call him back on the house number. When I tried calling back the line was busy. Unable to reconnect with patient .
--- NOTE | 2023-04-19 15:40 | NUR ---
was able to finally connect with patient Fransico and give an update
--- NOTE | 2023-04-19 16:33 | NUR ---
Dr. New visited patient and said patient is to be on IV fluids. Patient is in renal failure. NS running @100 per MD and he ordered her to have ensure enlive TIDWM
[2023-04-19] MEDS ORDERED: normal saline 1000ml 1,000 ML IV SCH (16:35)
[2023-04-19] MEDS: normal saline 1000ml 1,000 ML IV SCH (16:57)
--- NOTE | 2023-04-19 17:14 | NUR ---
PAGER ID: [phone] MESSAGE: [id number]- Sulaiman, S- patient has diarrhea and would like antidiarrhea medication. Pls advise? Benoit Shin [phone]
[2023-04-19] MEDS ORDERED: loperamide 2mg capsule PO ONE (17:15)
--- NOTE | 2023-04-19 18:00 | NUR ---
I have reviewed and agree with interventions, assessments, and documentation by Aleida Jeff LVN.
--- NOTE | 2023-04-19 18:35 | NUR ---
Problems reprioritized. Patient report given, questions answered & plan of care reviewed with Hermila CARRILLO.
--- NOTE | 2023-04-19 18:50 | NUR ---
Patient in room ORTHO 4020. I have received report from Meagan YIP and had the opportunity to ask questions and assume patient care.
[2023-04-19] MEDS: acetaminophen 325mg tablet PO PRN (21:48)
[2023-04-20] VITALS (15 sets, daily range): BP systolic 143–192; BP diastolic 84–108; PULSE 68–87; RESP 15–20; TEMP 96.4–97.8; O2SAT 94–97
--- NOTE | 2023-04-20 02:16 | NUR ---
Called MD with regard to patient's continued elevated BP(currently 177/105, 78). Noted on med rec that the patient was taking losartan potassium 50 mg BiD as well as the labetalol 100mg q12, but the losartan was put on hold. New orders to resume taking losartan potassium 50mg BID.
[2023-04-20] MEDS: normal saline 1000ml 1,000 ML IV SCH ×3 (02:39→22:35)
[2023-04-20] MEDS: losartan 25mg tablet PO SCH ×3 (02:40→19:49)
[2023-04-20] MEDS: chlordiazePOXIDE 25mg capsule PO SCH ×3 (05:19→16:00)
[2023-04-20] MEDS: acetaminophen 325mg tablet PO PRN (05:28)
--- NOTE | 2023-04-20 06:40 | NUR ---
Patient in room ORTHO 4020. I have received report from Hermila CARRILLO and had the opportunity to ask questions and assume patient care.
[2023-04-20 07:15] LABS: ALBUMIN 2.2 G/DL (3.4-5.0); ANION GAP 9 (8-16); BLOOD UREA NITROGEN 10 MG/DL (7-18); BUN/CREATININE RATIO 6.9 (10.0-20.0); CALCIUM 8.9 MG/DL (8.5-10.1); CHLORIDE 102 MMOL/L (99-107); CREATININE 1.44 MG/DL (0.40-0.90); GLUCOSE 90 MG/DL (70-104); POTASSIUM 3.2 MMOL/L (3.5-5.1); SODIUM 133 MMOL/L (135-145); TOTAL CARBON DIOXIDE 22.3 MMOL/L (24-32); eCRCL 39 ML/MIN; eGFR 39 ML/MIN
[2023-04-20] MEDS: budesonide 0.5mg/2ml UD nebule IH SCH ×2 (07:58→19:26)
[2023-04-20] MEDS: ipratropium/albuterol 3ml nebule NEB PRN ×2 (07:58→19:25)
[2023-04-20] MEDS: lactose-reduced food (Ensure Enlive) - 237ml bottle PO SCH ×3 (08:00→18:03)
[2023-04-20] MEDS: cloNIDine 0.1 mg tablet PO SCH ×3 (08:35→22:26)
[2023-04-20] MEDS: folic acid 1mg tablet PO SCH (08:37)
[2023-04-20] MEDS: guaiFENesin ER 600mg tablet PO SCH ×2 (08:38→19:52)
[2023-04-20] MEDS: labetalol 100mg tablet PO SCH ×2 (08:39→19:52)
[2023-04-20] MEDS: multivitamins, therapeutics tablet PO SCH (08:39)
[2023-04-20] MEDS: thiamine 100mg tablet PO SCH (08:39)
[2023-04-20] MEDS: heparin, porcine 5000 units/ml vial SQ SCH ×2 (08:43→16:40)
[2023-04-20 10:09] LABS: VANCOMYCIN,RANDOM 34.3 ug/mL (20.0-30.0)
--- NOTE | 2023-04-20 10:27 | NUR ---
PAGER ID: [phone] MESSAGE: [id number]: Timmy Hilario- Critical lab results Vanco Random 34.3. PLs advise? Benoit Shin [phone]
--- NOTE | 2023-04-20 10:29 | NUR ---
PAGER ID: [phone] MESSAGE: [id number]- Sulaiman S- patient is in patient room and wants to talk to you. Pls advise? BOLA Shin [phone]
--- NOTE | 2023-04-20 16:49 | NUR ---
Patient refused to [facility] at 1630, student nurse provided education on the medication and that it used for anxiety/ ETOH withdrawl symptoms. Patient still refused, instructor placed med back in [facility].
--- NOTE | 2023-04-20 16:52 | NUR ---
Heparin fell on the floor, wasted 5000 units/mL with instructor. Took new clean Heparin out of omni with instructor to admin to patient. Addendum: 04/20/23 at 1708 by Aleida Adhikari LVN, LVN main nurse Aleida was notified and witnessed this.
--- NOTE | 2023-04-20 17:08 | NUR ---
Main nurse Aleida was notified and witnessed this. Returned medication to [facility] controlled locked box for pharmacy to bean picker.
--- NOTE | 2023-04-20 18:00 | NUR ---
I have reviewed and agree with interventions, assessments, and documentation by Aleida Jeff LVN.
--- NOTE | 2023-04-20 18:12 | NUR ---
Problems reprioritized. Patient report given, questions answered & plan of care reviewed with Hermila CARRILLO.
--- NOTE | 2023-04-20 18:40 | NUR ---
Received report from Meagan YIP
[2023-04-21] VITALS (16 sets, daily range): BP systolic 150–192; BP diastolic 76–109; PULSE 73–89; RESP 16–26; TEMP 97.1–97.9; O2SAT 93–99
[2023-04-21] MEDS: heparin, porcine 5000 units/ml vial SQ SCH ×3 (00:33→16:37)
[2023-04-21] MEDS: chlordiazePOXIDE 25mg capsule PO SCH ×2 (00:33→07:17)
[2023-04-21] MEDS: normal saline 1000ml 1,000 ML IV SCH ×3 (02:56→23:14)
--- NOTE | 2023-04-21 03:00 | NUR ---
BP registering high on machine L arm = 202/108 and R arm= 173/95. Did manuals on L arm = 150/100, and R arm 148/110. Patient is currently taking 3 different pain meds per shift. Will continue to monitor.
--- NOTE | 2023-04-21 06:45 | NUR ---
Patient in room ORTHO 4020. I have received report from GERARDO Cleaning and had the opportunity to ask questions and assume patient care.
--- NOTE | 2023-04-21 06:53 | NUR ---
Problems reprioritized. Patient report given, questions answered & plan of care reviewed with Bouchra YIP.
[2023-04-21] MEDS: cloNIDine 0.1 mg tablet PO SCH (07:16)
[2023-04-21] MEDS: losartan 25mg tablet PO SCH ×2 (07:16→22:05)
[2023-04-21] MEDS: labetalol 100mg tablet PO SCH ×2 (07:18→22:04)
[2023-04-21 07:32] LABS: BASOPHILS # (AUTO) 0.1 X10'3 (0-0.2); BASOPHILS % (AUTO) 1.3 % (0-1); EOSINOPHILS # (AUTO) 0.2 X10'3 (0-0.9); EOSINOPHILS % (AUTO) 3.4 % (0-6); HEMATOCRIT 28.1 % (35.0-45.0); HEMOGLOBIN 9.9 g/dl (12.0-16.0); LYMPHOCYTES # (AUTO) 0.8 X10'3 (1.1-4.8); LYMPHOCYTES % (AUTO) 11.1 % (21-51); MEAN CORPUSCULAR HEMOGLOBIN 36.6 PG (27.0-31.0); MEAN CORPUSCULAR HGB CONC 35.2 g/dL (33.0-36.5); MEAN CORPUSCULAR VOLUME 104.1 FL (78-98); MEAN PLATELET VOLUME 7.1 FL (7.4-10.4); MONOCYTES # (AUTO) 1.1 X10'3 (0-0.9); MONOCYTES % (AUTO) 16.2 % (2-12); NEUTROPHILS # (AUTO) 4.7 X10'3 (1.8-7.7); PLATELET COUNT 455 X10'3 (140-440); RED CELL DISTRIBUTION WIDTH 14.3 % (11.5-14.5); WHITE BLOOD COUNT 6.9 X10'3 (4.5-11.0)
[2023-04-21] MEDS: thiamine 100mg tablet PO SCH (07:38)
[2023-04-21] MEDS: guaiFENesin ER 600mg tablet PO SCH ×2 (07:38→22:04)
[2023-04-21] MEDS: multivitamins, therapeutics tablet PO SCH (07:38)
[2023-04-21] MEDS: folic acid 1mg tablet PO SCH (07:39)
[2023-04-21 07:55] LABS: ALBUMIN 2.5 G/DL (3.4-5.0); ANION GAP 9 (8-16); BLOOD UREA NITROGEN 9 MG/DL (7-18); BUN/CREATININE RATIO 6.4 (10.0-20.0); CALCIUM 9.2 MG/DL (8.5-10.1); CHLORIDE 106 MMOL/L (99-107); GLUCOSE 114 MG/DL (70-104); POTASSIUM 4.1 MMOL/L (3.5-5.1); SODIUM 136 MMOL/L (135-145); TOTAL CARBON DIOXIDE 20.8 MMOL/L (24-32); eCRCL 40 ML/MIN; eGFR 40 ML/MIN
[2023-04-21] MEDS: lactose-reduced food (Ensure Enlive) - 237ml bottle PO SCH ×3 (08:00→19:00)
[2023-04-21 08:21] LABS: PLATELET ESTIMATE INCREASED; TOTAL CELLS COUNTED 100
[2023-04-21 08:22] LABS: BURR CELLS 1+
[2023-04-21 08:24] LABS: ANISOCYTOSIS FEW
[2023-04-21] MEDS: budesonide 0.5mg/2ml UD nebule IH SCH ×2 (08:41→20:26)
[2023-04-21] MEDS: ipratropium/albuterol 3ml nebule NEB PRN ×3 (08:41→20:26)
[2023-04-21] MEDS ORDERED: labetalol 100mg tablet PO ONE (11:30)
--- NOTE | 2023-04-21 17:00 | NUR ---
ORE ROASTER documentation: I have reviewed and agree with all interventions, assessments performed and documented by Mateo Moss LVN.
--- NOTE | 2023-04-21 18:16 | NUR ---
Problems reprioritized. Patient report given, questions answered & plan of care reviewed with GERARDO Rowley.
[2023-04-22] VITALS (9 sets, daily range): BP systolic 140–185; BP diastolic 74–109; PULSE 84–94; RESP 16–22; TEMP 97.5–98.6; O2SAT 90–98
[2023-04-22] MEDS: hyDRALAzine 10mg tablet PO PRN ×2 (00:28→09:10)
--- NOTE | 2023-04-22 06:40 | NUR ---
Problems reprioritized. Patient report given, questions answered & plan of care reviewed with CHRISTIANO CARRILLO.
--- NOTE | 2023-04-22 06:46 | NUR ---
Patient in room ORTHO 4020. I have received report from GERARDO Rowley and had the opportunity to ask questions and assume patient care.
[2023-04-22 06:49] LABS: ALBUMIN 2.5 G/DL (3.4-5.0); ANION GAP 10 (8-16); BLOOD UREA NITROGEN 9 MG/DL (7-18); BUN/CREATININE RATIO 5.9 (10.0-20.0); CHLORIDE 111 MMOL/L (99-107); CREATININE 1.53 MG/DL (0.40-0.90); GLUCOSE 105 MG/DL (70-104); POTASSIUM 3.7 MMOL/L (3.5-5.1); SODIUM 142 MMOL/L (135-145); TOTAL CARBON DIOXIDE 21.1 MMOL/L (24-32); eCRCL 37 ML/MIN; eGFR 36 ML/MIN
[2023-04-22 06:54] LABS: BASOPHILS # (AUTO) 0.1 X10'3 (0-0.2); BASOPHILS % (AUTO) 1.4 % (0-1); EOSINOPHILS # (AUTO) 0.2 X10'3 (0-0.9); EOSINOPHILS % (AUTO) 1.9 % (0-6); HEMATOCRIT 28.5 % (35.0-45.0); HEMOGLOBIN 9.4 g/dl (12.0-16.0); LYMPHOCYTES # (AUTO) 0.7 X10'3 (1.1-4.8); MEAN CORPUSCULAR HEMOGLOBIN 34.1 PG (27.0-31.0); MEAN CORPUSCULAR HGB CONC 32.8 g/dL (33.0-36.5); MEAN PLATELET VOLUME 7.3 FL (7.4-10.4); MONOCYTES # (AUTO) 1.4 X10'3 (0-0.9); MONOCYTES % (AUTO) 15.6 % (2-12); NEUTROPHILS # (AUTO) 6.4 X10'3 (1.8-7.7); NEUTROPHILS % (AUTO) 73.1 % (42-75); PLATELET COUNT 497 X10'3 (140-440); RED BLOOD COUNT 2.74 X10'6 (4.20-5.60); RED CELL DISTRIBUTION WIDTH 14.6 % (11.5-14.5); WHITE BLOOD COUNT 8.8 X10'3 (4.5-11.0)
[2023-04-22] MEDS: lactose-reduced food (Ensure Enlive) - 237ml bottle PO SCH ×3 (08:00→19:00)
[2023-04-22] MEDS: budesonide 0.5mg/2ml UD nebule IH SCH ×2 (08:17→22:05)
[2023-04-22] MEDS: ipratropium/albuterol 3ml nebule NEB PRN ×2 (08:17→22:05)
[2023-04-22] MEDS: amLODIPine 5mg tablet PO SCH (09:09)
[2023-04-22] MEDS: chlordiazePOXIDE 25mg capsule PO SCH (09:09)
[2023-04-22] MEDS: labetalol 100mg tablet PO SCH ×2 (09:10→20:36)
[2023-04-22] MEDS: folic acid 1mg tablet PO SCH (09:10)
[2023-04-22] MEDS: guaiFENesin ER 600mg tablet PO SCH ×2 (09:11→20:36)
[2023-04-22] MEDS: heparin, porcine 5000 units/ml vial SQ SCH ×2 (09:13→20:36)
[2023-04-22] MEDS: losartan 25mg tablet PO SCH ×2 (09:21→20:36)
[2023-04-22] MEDS: thiamine 100mg tablet PO SCH (09:21)
[2023-04-22] MEDS: multivitamins, therapeutics tablet PO SCH (09:21)
[2023-04-22] MEDS: normal saline 1000ml 1,000 ML IV SCH ×2 (09:39→20:30)
--- NOTE | 2023-04-22 10:11 | NUR ---
Notified pharmacy that pt does not have her spirolactone medication in the omnicell. Will continue to wait to hear from pharmacy
[2023-04-22] MEDS: spironolactone 25 MG tablet PO SCH (10:41)
[2023-04-22] MEDS: acetaminophen 325mg tablet PO PRN (10:43)
--- NOTE | 2023-04-22 10:58 | NUR ---
F/u 04/22: Pt continues on a pureed/nectar thick diet per CHEMIST WATER PURIFICATION. Pt continues with poor PO intake average 14% x 8 meals this follow up. Pt is receiving Ensure Enlive TID with average intake 88% x 5 ONS. Pt met 100% estimated kcal and protein needs with ONS and PO intake. LBM on 04/21 per EMR. Will continue to monitor and make recommendations as appropriate. Rec: 1. continue pureed diet/nectar thick liquids per CHEMIST WATER PURIFICATION; encourage PO intake 2. continue Chocolate Ensure Enlive TIDWM 3. continue routine thiamine, folic acid, and MVI for etoh hx 4. routine bowel care 5. weekly weights Addendum: 04/22/23 at [address] Amended: Links added.
--- NOTE | 2023-04-22 11:06 | NUR ---
F/u 04/22: Pt continues on a pureed/nectar thick diet per GRANULATING MACHINE OPERATOR. Pt continues with poor PO intake average 14% x 8 meals this follow up. Pt is receiving Ensure Enlive TID with average intake 88% x 5 ONS. Pt met 100% estimated kcal and protein needs with ONS and PO intake. LBM on 04/21 per EMR. Will continue to monitor and make recommendations as appropriate. Rec: 1. continue pureed diet/nectar thick liquids per GRANULATING MACHINE OPERATOR; encourage PO intake 2. continue Chocolate Ensure Enlive TIDWM 3. continue routine thiamine, folic acid, and MVI for etoh hx 4. routine bowel care Addendum: 04/22/23 at [address] Amended: Links added.
--- NOTE | 2023-04-22 18:47 | NUR ---
Problems reprioritized. Patient report given, questions answered & plan of care reviewed with GERARDO Rowley.
--- NOTE | 2023-04-22 19:50 | NUR ---
Patient in room [facility]TH[facility] 4020. I have received report from CHRISTIANO CARRILLO and had the opportunity to ask questions and assume patient care.
[2023-04-22] MEDS: thiamine 100mg/ml 2ml inj. IM SCH (20:35)
[2023-04-23] VITALS (16 sets, daily range): BP systolic 138–192; BP diastolic 72–110; PULSE 89–114; RESP 20–38; TEMP 96.7–98.9; O2SAT 91–99
[2023-04-23] MEDS: hyDRALAzine 10mg tablet PO PRN (05:22)
--- NOTE | 2023-04-23 06:13 | NUR ---
Problems reprioritized. Patient report given, questions answered & plan of care reviewed with CASTILLO CARRILLO.
[2023-04-23 06:26] LABS: ALBUMIN 2.5 G/DL (3.4-5.0); ANION GAP 12 (8-16); BLOOD UREA NITROGEN 12 MG/DL (7-18); BUN/CREATININE RATIO 7.4 (10.0-20.0); CALCIUM 8.9 MG/DL (8.5-10.1); CHLORIDE 115 MMOL/L (99-107); CREATININE 1.62 MG/DL (0.40-0.90); GLUCOSE 125 MG/DL (70-104); POTASSIUM 3.5 MMOL/L (3.5-5.1); SODIUM 148 MMOL/L (135-145); eCRCL 35 ML/MIN; eGFR 34 ML/MIN
--- NOTE | 2023-04-23 06:30 | NUR ---
Patient in room ORTHO 4020. I have received report from GERARDO Rowley and had the opportunity to ask questions and assume patient care.
[2023-04-23 06:35] LABS: BASOPHILS # (AUTO) 0.2 X10'3 (0-0.2); BASOPHILS % (AUTO) 1.3 % (0-1); EOSINOPHILS # (AUTO) 0.1 X10'3 (0-0.9); HEMATOCRIT 29.5 % (35.0-45.0); HEMOGLOBIN 9.6 g/dl (12.0-16.0); LYMPHOCYTES # (AUTO) 0.5 X10'3 (1.1-4.8); LYMPHOCYTES % (AUTO) 3.9 % (21-51); MEAN CORPUSCULAR HEMOGLOBIN 34.8 PG (27.0-31.0); MEAN CORPUSCULAR HGB CONC 32.7 g/dL (33.0-36.5); MEAN CORPUSCULAR VOLUME 106.3 FL (78-98); MONOCYTES # (AUTO) 1.5 X10'3 (0-0.9); MONOCYTES % (AUTO) 11.9 % (2-12); NEUTROPHILS # (AUTO) 10.3 X10'3 (1.8-7.7); NEUTROPHILS % (AUTO) 81.9 % (42-75); PLATELET COUNT 501 X10'3 (140-440); RED BLOOD COUNT 2.77 X10'6 (4.20-5.60); RED CELL DISTRIBUTION WIDTH 15.1 % (11.5-14.5); WHITE BLOOD COUNT 12.6 X10'3 (4.5-11.0)
[2023-04-23] MEDS: lactose-reduced food (Ensure Enlive) - 237ml bottle PO SCH ×3 (08:00→18:00)
[2023-04-23] MEDS: heparin, porcine 5000 units/ml vial SQ SCH ×2 (08:50→20:00)
[2023-04-23] MEDS: folic acid 1mg tablet PO SCH (08:50)
[2023-04-23] MEDS: multivitamins, therapeutics tablet PO SCH (08:50)
[2023-04-23] MEDS: spironolactone 25 MG tablet PO SCH (08:51)
[2023-04-23] MEDS: losartan 25mg tablet PO SCH ×2 (08:51→20:00)
[2023-04-23] MEDS: labetalol 100mg tablet PO SCH ×2 (08:51→20:00)
[2023-04-23] MEDS: chlordiazePOXIDE 25mg capsule PO SCH (08:52)
[2023-04-23] MEDS: guaiFENesin ER 600mg tablet PO SCH ×2 (08:52→20:00)
[2023-04-23] MEDS: amLODIPine 5mg tablet PO SCH (08:52)
[2023-04-23] MEDS: budesonide 0.5mg/2ml UD nebule IH SCH ×2 (08:55→20:47)
--- NOTE | 2023-04-23 09:03 | NUR ---
Informed Dr. Brown by cell phone that patient looks like she has declined. She meets our sepsis screening, RR 30, WBC 12.6, HR 94. she is not eating, requires 2-3L NC when she has been RA. GFR 34. Na+ is now 148. Will continue to monitor. Addendum: 04/23/23 at 0910 by Lulu Glover RN Dr. Brown acknowledged message. No new orders.
[2023-04-23] MEDS: thiamine 100mg/ml 2ml inj. IM SCH ×2 (09:25→20:00)
--- NOTE | 2023-04-23 09:32 | NUR ---
Spoke with on the phone, gave him an update on patient. He will be coming by later this afternoon.
[2023-04-23] MEDS ORDERED: hydrALAZINE 20mg/ml inj. IV PRN (10:50)
[2023-04-23 11:19] LABS: PRO BRAIN NATRIURETIC PEPTIDE 25414 PG/ML (0-125)
[2023-04-23] MEDS ORDERED: dextrose 5%-normal saline 1,000 ML IV SCH (12:00)
--- NOTE | 2023-04-23 13:30 | NUR ---
Student documentation: I have reviewed all interventions, assessments performed and documented by Nhung SOLIS from [facility] . Student Medication Administration: For all medication-passes in the time frame of 9678-0771, all medication were reviewed, dispensed, administered and documented per hospital policy by Nhung SOLIS from [facility].
[2023-04-23] MEDS: sodium chloride 0.45% 1,000 ML IV SCH (15:55)
[2023-04-23] MEDS: piperacillin/tazo 3.375gm/50ml 50 ML IV SCH (16:11)
[2023-04-23 17:33] LABS: ABG BASE EXCESS -6.9 mmol/L (-2.0-2.0); ABG OXYGEN SATURATION 96.5 % (94-97); ABG PCO2 (T) 52.9 mmHg (32.0-45.0); ABG PH (T) 7.216 (7.350-7.450); ABG PO2 (T) 92.3 mmHg (75.0-100.0); ALLEN'S TEST Modified; FCOHb 0.2 % (0.0-3.9); FHHb 3.5 % (0.0-5.0); FLOW 3 L/min; FMetHb 0.1 % (0.0-1.5); FO2Hb 96.2 % (94-97); MODE NASAL CANNULA; TOTAL HEMOGLOBIN 10.9 G/dl (12.0-16.0)
--- NOTE | 2023-04-23 18:00 | NUR ---
Patient in room [facility]THO 4020. I have received report from CASTILLO YIP and had the opportunity to ask questions and assume patient care.
--- NOTE | 2023-04-23 18:27 | NUR ---
Problems reprioritized. Patient report given, questions answered & plan of care reviewed with GERARDO Sky.
[2023-04-23 20:40] LABS: ABG BASE EXCESS -7.5 mmol/L (-2.0-2.0); ABG HCO3 20.5 mmol/L (22.0-26.0); ABG OXYGEN SATURATION 93.7 % (94-97); ABG PCO2 (T) 52.7 mmHg (32.0-45.0); ABG PH (T) 7.208 (7.350-7.450); ABG PO2 (T) 78.8 mmHg (75.0-100.0); ALLEN'S TEST Modified; FCOHb 0.6 % (0.0-3.9); FHHb 6.2 % (0.0-5.0); FMetHb 0.3 % (0.0-1.5); FO2Hb 92.9 % (94-97); RESPIRATORY RATE 10 b/min; TOTAL HEMOGLOBIN 11.2 G/dl (12.0-16.0)
[2023-04-23] MEDS: ipratropium/albuterol 3ml nebule NEB PRN (20:48)
[2023-04-23 21:14] LABS: D-DIMER 1.92 MG/L FEU (0-0.50)
[2023-04-23 21:37] LABS: OSMOLALITY 312 MOSM/K (280-300)
[2023-04-23 21:49] LABS: CREATINE KINASE 16 U/L (26-192); LIPASE < 50 U/L (73-393); PRO BRAIN NATRIURETIC PEPTIDE 24185 PG/ML (0-125)
[2023-04-23] MEDS ORDERED: morphine 10mg/0.5ml (conc. morphine) oral syringe PO PRN (23:30)
[2023-04-23] MEDS ORDERED: morphine 10mg/ml inj. IV PRN (23:30)
[2023-04-23] MEDS ORDERED: LORazepam 2 mg/ml vial IV PRN (23:30)
[2023-04-23] MEDS ORDERED: acetaminophen 325mg tablet PO PRN (23:30)
[2023-04-24] MEDS: piperacillin/tazo 3.375gm/50ml 50 ML IV SCH
--- NOTE | 2023-04-24 01:00 | NUR ---
1830 DR. SORENSEN IN NURSES STATION, HAVING BEEN IN TO SEE PATIENT AND HER FAMILY. AN ABG WAS ORDERED AND HAD A EDGARD DISCUSSION REGARDING OUTCOMES AND TREATMENTS BASED ON THE RESULTS OF THAT TEST. ONE OF THE OPTIONS WARRANTED BY THE RESULTS OF HER ABG WAS TO PLACE HER ON BIPAP, OR THE NEED TO INTUBATE AND TRANSFER PATIENT TO THE UNIT. HOWEVER, HER PROGNOSIS IS NOT GOOD AND DISCUSSED MAKING THE PATIENT DNR WITH COMFORT CARE. FAMILY WAS ABLE TO ASK QUESTIONS AND I FEEL THEY HAD GOOD INFORMATION TO MAKE AN INFORMED DECISION ABOUT THE PATIENTS CARE. THEY DID STATE HOWEVER THE DAUGHTER WAS ON HER WAY INTO THE HOSPITAL SO WOULD NOT MAKE ANY DECISIONS UNTIL SHE ARRIVED.I CALLED DR. JUAREZ AND RC'D AN ORDER FOR BIPAP, ST CATHETER AND REPEAT ABG'S AFTER PATIENT PLACED ON BIPAP, RESPIRATORY THERAPY SET UP THE BIPAP AND ANOTHER SET OF ABG'S WERE DRAWN ABOUT 1.5 HRS AFTER THE INITIAL SETUP SHOWING VERY LITTLE CHANGES OR IMPROVEMENT. AFTER THE DAUGHTER ARRIVED THE FAMILY DID SPEND SOME TIME AT THE BEDSIDE DISCUSSING THE TRTMT OPTIONS OR TO PLACE THE PATIENT ONTO COMFORT CARE, WHICH ULTIMATELY, WAS THEIR DECISION. I PLACED ANOTHER CALL TO DR. JUAREZ, INFORMING HIM OF THE FAMILIES WISHES. PATIENT NOTED HAVING AIR HUNGER, MORPHINE GIVEN IV ORDERED, ST CATHETER PLACED, BIPAP REMOVED AND PATIENT POSITIONED AFTER SKIN CARE/ANOOP CARE GIVEN.
[2023-04-24] MEDS: sodium chloride 0.45% 1,000 ML IV SCH (01:35)
--- NOTE | 2023-04-24 03:22 | NUR ---
1919 BIPAP PLACED BY RT, FAMILY AT BEDSIDE, PATIENT UN-RESPONSIVE. 2114 MORPHINE GIVEN FOR AIR HUNGER, FAMILY MADE THEIR WISHES KNOWN FOR PATIENT TO BE DNR WITH COMFORT CARE, NOTIFIED DR. JUAREZ AND ORDER PLACED IN CHART AT 2330. BIPAP DC'D, F/C PLACED AND POSITIONED ONTO L SIDE. RR AT 34 BUT SEEMS COMFORTABLE AFTER BEING MEDICATED. 0200 ROUNDS MADE ON PATIENT, PALOR MUKHERJEE AND NOTED CYANOSIS TO NOSE AND LIPS. 02 SATS AT 65%. WILL CONTINUE TO MONITOR PATIENT. 0 ROUNDED ON PATIENT AND NO SPONTANEOUS BREATHING NOTED. EKG STRIP RUN, PATIENT PRONOUNCED AT 0228
--- NOTE | 2023-04-24 04:01 | NUR ---
HAVE ATTEMPTED TO CONTACT AT 3 DIFFERENT PHONE NUMBERS LEFT WITH US IN THE PATIENTS CHART WITH NO ANSWER. HAVE LEFT MESSAGES TO PLEASE CALL ME AT THE PHONE NUMBER FOR ORTHO. AT THIS TIME, HAVE NOT HAD A RETURN CALL TO NOTIFY HIM THAT THE PATIENT HAS . WE DO NOT AT THIS TIME, KNOW HIS PREFERENCE FOR DISPOSITION OF THE PATIENT AND HER BELONGINGS.
[2023-04-24] MEDS ORDERED: sennosides/docusate sodium tablet PO SCH (08:00)
[2023-04-24] MEDS ORDERED: docusate sod 100mg capsule PO SCH (08:00)
--- NOTE | 2023-04-24 08:10 | NUR ---
Notified Gera, father of Jennie, that the patient has passed. was not able to be reached as he is currently at work. Gera states that he will let Fransico know and he will have him call as soon as possible.
--- NOTE | 2023-04-24 10:19 | NUR ---
[facility] and [facility] picked up patient. Belongings will be picked up from the hospital by . aware of doner network may contact.
== END 2023-04-24 10:20 | DRG 426 ==
LOC: ICU 2S 09:14 → CICU 2S 09:43 → ORTHO 4S 19:00
PROVIDERS: ADMIT Internal Medicine Critical Care Medicine; ATTEND Internal Medicine Critical Care Medicine
PROC: 5A09357 Assistance with Respiratory Ventilation, Less than 24 Consecutive Hours, Continuous Positive Airway Pressure (ICD-10-PCS; principal; 2023-04-23)
PROC: 4A00X4Z Measurement of Central Nervous Electrical Activity, External Approach (ICD-10-PCS; 2023-04-23)
DX: E87.1 Hypo-osmolality and hyponatremia (principal); J96.01 Acute respiratory failure with hypoxia; G93.41 Metabolic encephalopathy; N17.9 Acute kidney failure, unspecified; J18.9 Pneumonia, unspecified organism; Y90.9 Presence of alcohol in blood, level not specified; F17.210 Nicotine dependence, cigarettes, uncomplicated; I10 Essential (primary) hypertension; J44.9 Chronic obstructive pulmonary disease, unspecified; R13.10 Dysphagia, unspecified; D53.9 Nutritional anemia, unspecified; F10.20 Alcohol dependence, uncomplicated; R56.9 Unspecified convulsions; E87.6 Hypokalemia; Z79.899 Other long term (current) drug therapy; Z88.2 Allergy status to sulfonamides; Z88.8 Allergy status to other drugs, medicaments and biological substances; Z88.6 Allergy status to analgesic agent; Z91.040 Latex allergy status
CPT/HCPCS: 36415; 36600; 70450; 71045; 73110; 76770; 80048; 80053; 80202; 81001; 82550; 82570; 82803; 83605; 83690; 83735; 83880; 83930; 83935; 84133; 84145; 84156; 84300; 84443; 84484; 85007; 85018; 85025; 85379; 87040; 87077; 87081; 87088; 87186; 87207; 87324; 87449; 92508; 92616; 93005; 93306; 94640; 94660; 94760; 95816; 97110; 97116; 97161; 97530; 97535; A4314; A4615; A4649; A6212; A6213; A6250; C1758; G0378; J1644; J1940; J2060; J2274; J2543; J3370; J3411; J3480; J3490; J7030; J7040